=== PATIENT | female | born 1955 | race Caucasian/White ===

== ENCOUNTER → 2017-05-05 | Outpatient (CLI) | payer MEDICAID ==
[2017-05-05 15:28] LABS: CH 31.8; CHCM 33.5; HDW 2.45; HGB 13.3 gm/dL (11.4-16.0); MCH 31.7 pg (25.0-35.0); MCHC 33.3 g/dL (31.0-37.0); MCV 95.1 fL (80.0-100.0); Mean Platelet Volume 6.9; RBC 4.21 m/uL (3.80-5.40); RDW 12.8 % (11.5-15.5); WBC 6.2 k/uL (3.8-10.6)
[2017-05-05 15:39] LABS: ALT 35 U/L (9-52); AST 24 U/L (14-36); Alkaline Phosphatase 96 U/L (38-126); Anion Gap 5 mmol/L; Blood Urea Nitrogen 11 mg/dL (7-17); Calcium 9.1 mg/dL (8.4-10.2); Carbon Dioxide 30 mmol/L (22-30); Chloride 106 mmol/L (98-107); Glucose 117 mg/dL (74-99); Non-African American GFR(MDRD) >60 (>60 ml/min/1.73 sqM); Potassium 4.6 mmol/L (3.5-5.1); Sodium 141 mmol/L (137-145); Total Protein 6.7 g/dL (6.3-8.2)
== END | disposition home or self-care (01) ==
LOC: LABWHC1 14:46
PROVIDERS: ATTEND Physician Assistant
DX: I10 Essential (primary) hypertension (principal); M54.5 Low back pain; K21.9 Gastro-esophageal reflux disease without esophagitis; R63.5 Abnormal weight gain
CPT/HCPCS: 36415; 80053; 85027; 86677

== ENCOUNTER 2018-03-25 23:12 | Observation (INO) | payer MEDICAID ==
[2018-03-25] MEDS ORDERED: ONDANSETRON 4 MG/2 ML VIAL IVP STA (23:42)
[2018-03-25] MEDS ORDERED: MORPHINE SULFATE 2 MG/ML SYRINGE IV STA (23:42)
[2018-03-25] MEDS ORDERED: SODIUM CHLORIDE 0.9% 1,000 ML IV STA (23:42)
[2018-03-25 23:51] LABS: Basophils # (A) 0.1 k/uL (0-0.2); Basophils % (A) 0 %; Eosinophils # (A) 0.1 k/uL (0-0.7); Eosinophils % (A) 1 %; HCT 42.7 % (34.0-46.0); HGB 14.4 gm/dL (11.4-16.0); Lymphocytes # (A) 2.1 k/uL (1.0-4.8); Lymphocytes % (A) 15 %; MCH 31.6 pg (25.0-35.0); MCHC 33.7 g/dL (31.0-37.0); MCV 93.8 fL (80.0-100.0); Mean Platelet Volume 6.4; Monocytes # (A) 0.6 k/uL (0-1.0); Monocytes % (A) 4 %; Neutrophils % (A) 79 %; Platelet Count 333 k/uL (150-450); RBC 4.56 m/uL (3.80-5.40); RDW 12.8 % (11.5-15.5)
[2018-03-26 00:05] LABS: ALT 27 U/L (9-52); AST 25 U/L (14-36); Albumin 4.2 g/dL (3.5-5.0); Alkaline Phosphatase 100 U/L (38-126); Anion Gap 13 mmol/L; Blood Urea Nitrogen 12 mg/dL (7-17); Calcium 9.5 mg/dL (8.4-10.2); Carbon Dioxide 27 mmol/L (22-30); Chloride 101 mmol/L (98-107); Glucose 112 mg/dL (74-99); Magnesium 1.9 mg/dL (1.6-2.3); Potassium 4.2 mmol/L (3.5-5.1); Sodium 141 mmol/L (137-145); Total Bilirubin 1.1 mg/dL (0.2-1.3); Total Protein 7.3 g/dL (6.3-8.2)
[2018-03-26 00:07] LABS: Partial Thromboplastin Time 22.9 sec (22.0-30.0); Prothrombin Time 9.5 sec (9.0-12.0)
[2018-03-26 00:11] LABS: Creatine Kinase 85 U/L (30-135)
[2018-03-26 00:17] LABS: D-Dimer 1.4 mg/L FEU (<0.60)
[2018-03-26 00:24] LABS: Creatine Kinase MB 0.8 ng/mL (0.0-2.4); Troponin I <0.012 ng/mL (0.000-0.034)
--- NOTE | 2018-03-26 00:47 | XR ---
EXAMINATION TYPE: XR chest 2V DATE OF EXAM: 03/26/2018 COMPARISON: NONE HISTORY: Chest pain TECHNIQUE: Frontal and lateral views of the chest are obtained. FINDINGS: Heart and mediastinum are normal. Lungs are clear. Diaphragm is normal. Bony thorax is int act. IMPRESSION: Normal chest.
--- NOTE | 2018-03-26 01:39 | CT ---
EXAMINATION TYPE: CT angio chest DATE OF EXAM: 03/26/2018 1:08 AM COMPARISON: NONE HISTORY: No prior, chest pain today, history of hypertension, elevated d-dimer R/O PE CT DLP: 600.40 mGycm Automated exposure control for dose reduction was used. CONTRAST: CTA scan of the thorax is performed with IV Contrast, patient injected with 70 mL of Isovue 370, pulm onary embolism protocol. There are 3-D post processed images.. FINDINGS: There are 3-D post processed images. There is mild subsegmental atelectasis at the lung bases. There is no evidence of a pulmonary mass. There is no pericardial effusion. Heart is slightly enlarged. The re is no evidence of aortic aneurysm or dissection. There is no mediastinal adenopathy. I see no fill ing defects in the pulmonary arteries. The bony thorax is intact. IMPRESSION: NO EVIDENCE OF PULMONARY EMBOLISM. CARDIOMEGALY. MILD SUBSEGMENTAL ATELECTASIS AT THE LUNG BASES. GALLBLADDER IS LARGE AND MEASURES 4.3 CM IN DIAMETER. THIS PROBABLY RELATES TO GALLBLADDER DYSFUNCTIO N.
[2018-03-26] MEDS ORDERED: ENALAPRILAT 1.25 MG/ML 1 ML VIAL IVP STA (02:47)
--- NOTE | 2018-03-26 02:47 | ED ---
Chest Pain HPI - General Chief Complaint: Chest Pain Stated Complaint: chest pain Time Seen by Provider: 03/25/18 23:26 Source: patient Mode of arrival: EMS Limitations: no limitations - History of Present Illness Initial Comments: 63 years old female presents with the chest pain and epigastric area since 6 AM today stating chest pain gets worse with a deep breaths she denies any cough no fever no chills she is not coughing up any phlegm she has a history of gastroesophageal reflux disease also has a history of smoking AND she still has her gallbladder. Denies any history of any myocardial infarction or any cardiac intervention denies any pulmonary embolism or DVT in the past, devious system is unremarkable - Related Data Home Medications Medication Instructions Recorded Confirmed Omeprazole [PriLOSEC] 20 mg PO BID 04/13/14 03/25/18 Atenolol [Tenormin] 25 mg PO DAILY 08/14/14 03/25/18 Cholecalciferol [Vitamin D3] 1,000 unit PO DAILY 03/25/18 03/25/18 Ibuprofen [Motrin Ib] 200 - 400 mg PO Q6H PRN 03/25/18 03/25/18 Allergies Allergy/AdvReac Type Severity Reaction Status Date / Time No Known Allergies Allergy Verified 03/25/18 23:37 Review of Systems ROS Statement: Those systems with pertinent positive or pertinent negative responses have been documented in the HPI. ROS Other: All systems not noted in ROS Statement are negative. EKG Findings - EKG Comments: EKG Findings:: I'm EKG is a normal sinus rhythm ventricular rate is 71 CA interval is 126 QRS duration is 78 QT/QTc is 394/428 review of this EKG does not reveal any ST elevation or ST depression Past Medical History Past Medical History: GERD/Reflux, Hypertension Additional Past Medical History / Comment(s): migraines, kidney stones,AORTIC REGURGITATION, h-pylori History of Any Multi-Drug Resistant Organisms: None Reported Past Surgical History: Appendectomy, Hysterectomy Additional Past Surgical History / Comment(s): KIDNEY STONES REMOVED Past Anesthesia/Blood Transfusion Reactions: No Reported Reaction Past Psychological History: No Psychological Hx Reported Smoking Status: Never smoker Past Alcohol Use History: None Reported Past Drug Use History: None Reported General Exam - General Exam Comments Initial Comments: General: The patient is awake and alert, in no distress, and does not appear acutely ill. Skin: Skin is warm and dry and no rashes or lesions are noted. Eye: Pupils are equal, round and reactive to light, extra-ocular movements are intact; there is normal conjunctiva bilaterally. Ears, nose, mouth and throat: There are moist mucous membranes and no oral lesions. Neck: The neck is supple, there is no tenderness or JVD. Cardiovascular: There is a regular rate and rhythm. No murmur, rub or gallop is appreciated. Respiratory: To auscultation bilateral, no wheezing no rhonchi no distress respiratory wu noticed Gastrointestinal: Soft, non-distended, non-tender abdomen without masses or organomegaly noted. There is no rebound or guarding present. Bowel sounds are unremarkable. The tender in epigastric area Back: There is no tenderness to palpation in the midline. There is no obvious deformity. Musculoskeletal: Normal ROM, no tenderness, There is no pedal edema. There is no calf tenderness or swelling. No cords were appreciated. Neurological: CN II-XII intact, Cranial nerves III through XII are intact. There are no obvious motor or sensory deficits. Coordination appears grossly intact. Speech is normal. Psychiatric: Cooperative, appropriate mood & affect, normal judgment. Limitations: no limitations Course Vital Signs 03/25/18 03/26/18 03/26/18 23:14 01:11 02:45 Temperature 98.9 F Pulse Rate 88 72 60 Respiratory 18 18 18 Rate Blood Pressure 172/78 176/75 180/79 O2 Sat by Pulse 98 99 99 Oximetry Critical Care Time Total Critical Care Time: 30 Critical Care Time: She came in with the epigastric pain chest pain radiates towards the back was concerned about 30 dissection considering her blood pressure was quite high d- dimer was elevated CT and J chest was unremarkable for pulmonary embolism blood pressure stayed above 180 for a few times she was given some Vasotec IV Disposition Clinical Impression: Hypertension, Chest pain, GERD (gastroesophageal reflux disease) Disposition: ADMITTED IP TO THIS HOSP Condition: Good Referrals: Olivia Mcduffie MD [Primary Care Provider] - 1-2 days
[2018-03-26] MEDS ORDERED: NITROGLYCERIN SL TABS 0.4 MG TAB SUBLINGUAL PRN (02:59)
[2018-03-26] MEDS ORDERED: MORPHINE SULFATE 2 MG/ML SYRINGE IV PRN (02:59)
[2018-03-26] MEDS ORDERED: amLODIPine 5 MG TAB PO STA (04:13)
[2018-03-26] MEDS ORDERED: hydrALAZINE HCL 20 MG/ML 1 ML VIAL IVP STA (04:14)
[2018-03-26 06:52] LABS: Creatine Kinase 79 U/L (30-135)
[2018-03-26 07:02] LABS: Creatine Kinase MB 0.8 ng/mL (0.0-2.4); Troponin I <0.012 ng/mL (0.000-0.034)
[2018-03-26] MEDS ORDERED: PANTOPRAZOLE 40 MG TABLET PO SCH (09:00)
[2018-03-26] MEDS: ATENOLOL 25 MG TAB PO SCH (10:49)
[2018-03-26] MEDS: CHOLECALCIFEROL 1,000 UNIT TAB PO SCH (10:49)
[2018-03-26] MEDS ORDERED: MAG HYDROX/AL HYDROX/SIMETH 30 ML CUP PO PRN (11:56)
--- NOTE | 2018-03-26 12:27 | ECHOF ---
Referral Reason: MEASUREMENTS -------- HEIGHT: 162.6 cm WEIGHT: 90.7 kg BP: 148/66 IVSd: 1.1 cm (0.6 - 1.1) LVIDd: 4.3 cm (3.9 - 5.3) LVPWd: 1.1 cm (0.6 - 1.1) IVSs: 1.3 cm LVIDs: 3.3 cm LVPWs: 1.2 cm LAESV Index (A-L): 23.97 ml/m Ao Diam: 3.1 cm (2.0 - 3.7) AV Cusp: 1.8 cm (1.5 - 2.6) LA Diam: 4.3 cm (2.7 - 3.8) MV EXCURSION: 22.560 mm (> 18.000) MV EF SLOPE: 120 mm/s (70 - 150) EPSS: 0.9 cm MV E Heron: 0.74 m/s MV DecT: 181 ms MV A Heron: 1.05 m/s MV E/A Ratio: 0.71 RAP: 5.00 mmHg RVSP: 30.70 mmHg FINDINGS -------- Sinus rhythm. This was a technically adequate study. LV size, wall thickness and systolic function are normal, with an EF greater than 55%. The left adam tricular size is normal. The right ventricle is normal in size. The left atrial size is normal. Normal LA size by volume 22+/-6 ml/m2. The right atrial size is normal. The aortic valve is trileaflet, and appears structurally normal. No aortic stenosis or regurgitation. Mild mitral annular calcification present. Mild mitral regurgitation is present. Mild tricuspid regurgitation present. There is no evidence of pulmonary hypertension. The right v entricular systolic pressure, as measured by Doppler, is 30.70mmHg. The pulmonic valve was not well visualized. The aortic root size is normal. There is no pericardial effusion. CONCLUSIONS -------- 1. LV size, wall thickness and systolic function are normal, with an EF greater than 55%. 2. The left ventricular size is normal. 3. The right ventricle is normal in size. 4. The left atrial size is normal. 5. The right atrial size is normal. 6. The aortic valve is trileaflet, and appears structurally normal. No aortic stenosis or regurgitati on. 7. Mild mitral annular calcification present. 8. Mild mitral regurgitation is present. 9. Mild tricuspid regurgitation present. 10. There is no evidence of pulmonary hypertension. 11. The right ventricular systolic pressure, as measured by Doppler, is 30.70mmHg. 12. The pulmonic valve was not well visualized. 13. The aortic root size is normal. 14. There is no pericardial effusion. SHOE STAMPER: Oksana [place] RDCS
--- NOTE | 2018-03-26 12:37 | P.CRDCN ---
History of Present Illness History of present illness: Mrs. Espinal is a pleasant 63-year-old female past medical history significant for hypertension, GERD and aortic regurgitation. She denies history of coronary artery disease and is a non-smoker. We have been asked to see her in consultation for chest pain. She states she woke up yesterday with a sharp heavy pain in the mid-sternal/epigastric region that radiated through to her back with associated nausea. The pain was persistent all day yesterday with no specific aggravating or alleviating factors. She denies associated shortness of breath, dizziness, palpitations, diaphoresis or vomiting. CTA was obtained which revealed evidence of pulmonary embolism, cardiomegaly, mild subsegmental atelectasis at the bilateral lung bases and an enlarged gallbladder with probably relating to elevated dysfunction. EKG reveals sinus mechanism with no acute ST or T-wave abnormalities. Chest xray negative for an acute cardiopulmonary process. Laboratory data reviewed, WBC 14.0, hgb 14.4, plt 333, d-dimer 1.4, sodium 141, potassium 4.2, magnesium 1.9, cardiac enzymes negative x2. Current cardiac medications include atenolol 25 mg daily. She also takes Prilosec, Motrin and vitamin D supplementation. Review of Systems At the time of my exam: CONSTITUTIONAL: Denies fever. Denies chills. EYES: Denies blurred vision. Denies vision changes. Denies eye pain. EARS, NOSE, MOUTH & THROAT: Denies headache. Denies sore throat. Denies ear pain. CARDIOVASCULAR: Complains of midsternal chest pain. Denies shortness of breath. Denies orthopnea. Denies PND. Denies palpitations. RESPIRATORY: Denies cough. GASTROINTESTINAL: Denies abdominal pain. Denies diarrhea. Denies constipation. Denies nausea. Denies vomiting. MUSCULOSKELETAL: Denies myalgias. INTEGUMENTARY: Denies pruitis. Denies rash. NEUROLOGIC: Denies numbness. Denies tingling. Denies weakness. PSYCHIATRIC: Denies anxiety. Denies depression. ENDOCRINE: Denies fatigue. Denies weight change. Denies polydipsia. Denies polyurina. GENITOURINARY: Denies burning, hematuria or urgency with micturation. HEMATOLOGIC: Denies history of anemia. Denies bleeding. Past Medical History Past Medical History: GERD/Reflux, Hypertension Additional Past Medical History / Comment(s): Aortic valve regurg, H pylori more than once, migraines, kidney stones surgically removed, hiatal henia, diverticulosis. History of Any Multi-Drug Resistant Organisms: None Reported Past Surgical History: Appendectomy, Hysterectomy Additional Past Surgical History / Comment(s): KIDNEY STONES REMOVED, 2013 EGD/ COLONOSCOPY Past Anesthesia/Blood Transfusion Reactions: No Reported Reaction Smoking Status: Never smoker - Past Family History Father Family Medical History: CVA/TIA Additional Family Medical History / Comment(s): Father of a CVA at the age of 70yrs. Mother Family Medical History: Coronary Artery Disease (CAD), Renal Disease Additional Family Medical History / Comment(s): Mother of complications after CABG. Medications and Allergies Home Medications Medication Instructions Recorded Confirmed Type Omeprazole [PriLOSEC] 20 mg PO BID 04/13/14 03/25/18 History Atenolol [Tenormin] 25 mg PO DAILY 08/14/14 03/25/18 History Cholecalciferol [Vitamin D3] 1,000 unit PO DAILY 03/25/18 03/25/18 History Ibuprofen [Motrin Ib] 200 - 400 mg PO Q6H PRN 03/25/18 03/25/18 History Allergies Allergy/AdvReac Type Severity Reaction Status Date / Time No Known Allergies Allergy Verified 03/25/18 23:37 Physical Exam Vitals: Vital Signs Temp Pulse Resp BP Pulse Ox 03/26/18 10:00 100 16 148/70 97 03/26/18 07:42 97 03/26/18 06:42 97.8 F 84 18 140/84 97 03/26/18 05:39 74 18 106/52 97 03/26/18 04:43 89 18 165/73 98 03/26/18 04:14 63 18 182/75 98 03/26/18 03:33 65 18 179/74 62 L 03/26/18 02:45 60 18 180/79 99 03/26/18 01:11 72 18 176/75 99 03/25/18 23:14 98.9 F 88 18 172/78 98 Intake and Output 03/25/18 03/26/18 03/26/18 22:59 06:59 14:59 Other: Weight 90.718 kg Blood pressure 148/70 heart rate 100 afebrile maintaining oxygen saturation on nasal cannula 2 L GENERAL: This is a 63-year-old occasion female in no apparent distress at the time of my examination. HEENT: Head is atraumatic, normocephalic. Pupils are equal, round. Sclerae anicteric. Conjunctivae are clear. Mucous membranes of the mouth are moist. Neck is supple. There is no jugular venous distention. No carotid bruit is heard. LUNGS: Clear to auscultation no wheezes, rales or rhonchi. No chest wall tenderness is noted on palpation or with deep breathing. HEART: Regular rate and rhythm with systolic murmur, no rubs or gallops. S1 and S2 heard. ABDOMEN: Soft, nontender. Bowel sounds are heard. No organomegaly noted. EXTREMITIES: No evidence of peripheral edema and no calf tenderness noted. VASCULAR: Radial and dorsalis pedis pulses palpated, no evidence of clubbing. NEUROLOGIC: Patient is awake, alert and oriented x3. Results 03/25/18 23:29 03/25/18 23:29 Cardiac Enzymes 03/25/18 03/25/18 03/26/18 Range/Units 23:29 23:29 06:19 AST 25 (14-36) U/L CK-MB (CK-2) 0.8 0.8 (0.0-2.4) ng/mL Troponin I <0.012 <0.012 (0.000-0.034) ng/mL Coagulation 03/25/18 Range/Units 23:29 PT 9.5 (9.0-12.0) sec APTT 22.9 (22.0-30.0) sec CBC 03/25/18 Range/Units 23:29 WBC 14.0 H (3.8-10.6) k/uL RBC 4.56 (3.80-5.40) m/uL Hgb 14.4 (11.4-16.0) gm/dL Hct 42.7 (34.0-46.0) % Plt Count 333 (150-450) k/uL Comprehensive Metabolic Panel 03/25/18 Range/Units 23:29 Sodium 141 (137-145) mmol/L Potassium 4.2 (3.5-5.1) mmol/L Chloride 101 (98-107) mmol/L Carbon Dioxide 27 (22-30) mmol/L BUN 12 (7-17) mg/dL Creatinine 0.60 (0.52-1.04) mg/dL Glucose 112 H (74-99) mg/dL Calcium 9.5 (8.4-10.2) mg/dL AST 25 (14-36) U/L ALT 27 (9-52) U/L Alkaline Phosphatase 100 (38-126) U/L Total Protein 7.3 (6.3-8.2) g/dL Albumin 4.2 (3.5-5.0) g/dL Current Medications Generic Name Dose Route Start Last Admin Trade Name Freq PRN Reason Stop Dose Admin Aspirin 325 mg 03/27/18 09:00 03/26/18 10:53 Aspirin PO 325 mg DAILY SARAI Administration Atenolol 25 mg 03/26/18 09:00 03/26/18 10:49 Tenormin PO 25 mg DAILY SARAI Administration Cholecalciferol 1,000 unit 03/26/18 09:00 03/26/18 10:49 Vitamin D3 PO 1,000 unit DAILY SARAI Administration Morphine Sulfate 4 mg 03/26/18 02:59 03/26/18 06:46 Morphine Sulfate (Inj) IV 4 mg Q5M PRN Administration Chest Pain Nitroglycerin 0.4 mg 03/26/18 02:59 Nitrostat SUBLINGUAL Q5M PRN Chest Pain Pantoprazole Sodium 40 mg 03/26/18 09:00 03/26/18 10:49 Protonix PO 40 mg BID SARAI Administration Intake and Output 03/25/18 03/26/18 03/26/18 22:59 06:59 14:59 Other: Weight 90.718 kg 03/25/18 23:29 03/25/18 23:29 Assessment and Plan Assessment: ASSESSMENT 1. Chest pain, atypical. An acute coronary event has been ruled out with no EKG evidence of ischemia and normal cardiac enzymes. 2. Hypertension 3. Gastroesophageal reflux disease PLAN Obtain 2D echocardiogram and doppler study to assess cardiac structure and function. Give maalox 30 mg x1 now. Check ultrasound of gallbladder. Further recommendations to follow based on clinical course. Thank you kindly for this consultation. Nurse Practitioner note has been reviewed, I agree with a documented findings and plan of care. Patient was seen and examined.
[2018-03-26 12:41] LABS: Creatine Kinase 59 U/L (30-135)
[2018-03-26 12:55] LABS: Creatine Kinase MB 0.8 ng/mL (0.0-2.4); Troponin I <0.012 ng/mL (0.000-0.034)
[2018-03-26] MEDS ORDERED: ONDANSETRON 4 MG/2 ML VIAL IVP STA (12:58)
--- NOTE | 2018-03-26 14:17 | US ---
EXAMINATION TYPE: US gallbladder DATE OF EXAM: 03/26/2018 COMPARISON: 03/26/2018 CT angio chest. CLINICAL HISTORY: pain. epigastric and back pain EXAM MEASUREMENTS: Liver Length: 14.5 cm Gallbladder Wall: 0.3cm CBD: 0.7 cm Right Kidney: 10.0 x 5.4 x 6.9 cm bowel gas limits exam Pancreas: wnl Liver: difficult to penetrate, intercostal imaging. Findings most commonly related to underlying hep atic steatosis and limiting evaluation for hepatic masses. Gallbladder: multiple stones seen near neck, a few appeared mobile but cannot r/o stone dependant in neck, sludge Evidence for sonographic Prather's sign: no CBD: Mildly enlarged Right Kidney: wnl IMPRESSION: Multiple shadowing gallstones at the gallbladder neck, biliary sludge, and mild enlargeme nt of the common bile duct. No convincing evidence of acute cholecystitis however biliary dysfunction is again suspected. HIDA scan with CCK could be performed to evaluate for biliary dyskinesia and/or chronic cholecystitis.
[2018-03-26] MEDS ORDERED: ACETAMINOPHEN IV (For NPO) 1,000 MG in EMPTY BAG 1 BAG IVPB STA (14:32)
--- NOTE | 2018-03-26 14:44 | P.GSCN ---
<Rea Allison - Last Filed: 03/26/18 14:45> History of Present Illness Consult date: 03/26/18 Reason for Consult: Abdominal pain with an abnormal computed tomography scan gallbladder enlarged History of present illness: 63-year-old female being seen at the request of the attending for a surgical eval after CAT scan of the chest showed an enlarged gallbladder suspect gallstones. Patient's initial presentation to the emergency room with a chief complaint of developing mid epigastric pain that radiated to the right upper quadrant With a nausea sensation stated it started yesterday she woke up from a sleep with severe mid epigastric pain became more symptomatic stated that it seemed to be worse if she tried taking a deep breath. Given the above clinical presentation d-dimer was obtained noted to be elevated and a CAT scan of the chest to rule out pulmonary emboli was obtained in the emergency room. There was no evidence of a pulmonary emboli it did show enlarged gallbladder. Patient additionally was seen by cardiology service for chest pain. Cardiac enzymes 3 sets were negative. no evidence of an acute coronary event. EKG showed no evidence of ischemia. Patient denied having episodes of chest pain. 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 Patient did have an echocardiogram done this admission did show an EF greater than 55% no evidence of pulmonary hypertension. Patient reports that she been experiencing on and off for the past several years intermittent episodes of developing mid epigastric pain would resolve on its own.. she did have a workup done several years ago for intermittent episodes of right upper quadrant abdominal pain. Reviewing the computerized record report had an EGD and a colonoscopy done in 2013 EGD showed small sliding hiatal hernia, mild atrophic gastritis, colonoscopy sigmoid diverticulosis Patient has a past medical history for hypertension, esophageal reflex. Additionally patient's past surgical history total abdominal hysterectomy, kidney stone removed, EGD and a colonoscopy. Patient continues to experience midepigastric pain with tenderness to the right upper quadrant. Did note the temp and the emergency room was 102.8 with a white count of 14. Review of Systems Essentially unremarkable except as mentioned in present illness Past Medical History Past Medical History: GERD/Reflux, Hypertension Additional Past Medical History / Comment(s): Aortic valve regurg, H pylori more than once, migraines, kidney stones surgically removed, hiatal henia, diverticulosis. History of Any Multi-Drug Resistant Organisms: None Reported Past Surgical History: Appendectomy, Hysterectomy Additional Past Surgical History / Comment(s): KIDNEY STONES REMOVED, 2013 EGD/ COLONOSCOPY Past Anesthesia/Blood Transfusion Reactions: No Reported Reaction Smoking Status: Never smoker - Past Family History Father Family Medical History: CVA/TIA Additional Family Medical History / Comment(s): Father of a CVA at the age of 70yrs. Mother Family Medical History: Coronary Artery Disease (CAD), Renal Disease Additional Family Medical History / Comment(s): Mother of complications after CABG. Medications and Allergies Home Medications Medication Instructions Recorded Confirmed Type Omeprazole [PriLOSEC] 20 mg PO BID 04/13/14 03/25/18 History Atenolol [Tenormin] 25 mg PO DAILY 08/14/14 03/25/18 History Cholecalciferol [Vitamin D3] 1,000 unit PO DAILY 03/25/18 03/25/18 History Ibuprofen [Motrin Ib] 200 - 400 mg PO Q6H PRN 03/25/18 03/25/18 History Allergies Allergy/AdvReac Type Severity Reaction Status Date / Time No Known Allergies Allergy Verified 03/25/18 23:37 Surgical - Exam Vital Signs Temp Pulse Resp BP Pulse Ox 98.9 F 88 18 172/78 98 03/25/18 23:14 03/25/18 23:14 03/25/18 23:14 03/25/18 23:14 03/25/18 23:14 GENERAL APPEARANCE: Very pleasant 63-year-old female patient is alert, reports persistent right upper quadrant abdominal pain with a headache VITAL SIGNS: Reviewed HEENT: Head is normocephalic and atraumatic. Pupils are equal and reactive. The nares are patent. Oropharynx is clear without lesions. NECK: Supple without lymphadenopathy. Traches midline. HEART: S1, S2. Regular rate and rhythm. No murmur noted denying chest pain heart rate in the 80s LUNGS: No crackles or wheezes are heard. Adequate air movement bilaterally on room air no shortness of breath noted ABDOMEN: Soft, mild tenderness midepigastric radiating right upper quadrant nondistended with good bowel sounds. No peritoneal signs. No palpable organomegaly or masses. EXTREMITIES: Normal skin color and turgor. No cyanosis, rash, ulceration, clubbing or edema. Radial pedal pulses are 2/4 bilaterally. NEUROLOGICAL: No focal deficits. Strength and sensation are grossly intact. Results - Labs 03/25/18 23:29 03/25/18 23:29 Abnormal Lab Results - Last 24 Hours (Table) 03/25/18 03/25/18 03/25/18 Range/Units 23:29 23:29 23:29 WBC 14.0 H (3.8-10.6) k/uL Neutrophils # 11.0 H (1.3-7.7) k/uL D-Dimer 1.40 H (<0.60) mg/L FEU Glucose 112 H (74-99) mg/dL Diabetes panel 03/25/18 Range/Units 23:29 Sodium 141 (137-145) mmol/L Potassium 4.2 (3.5-5.1) mmol/L Chloride 101 (98-107) mmol/L Carbon Dioxide 27 (22-30) mmol/L BUN 12 (7-17) mg/dL Creatinine 0.60 (0.52-1.04) mg/dL Glucose 112 H (74-99) mg/dL Calcium 9.5 (8.4-10.2) mg/dL AST 25 (14-36) U/L ALT 27 (9-52) U/L Alkaline Phosphatase 100 (38-126) U/L Total Protein 7.3 (6.3-8.2) g/dL Albumin 4.2 (3.5-5.0) g/dL Calcium panel 03/25/18 Range/Units 23:29 Calcium 9.5 (8.4-10.2) mg/dL Albumin 4.2 (3.5-5.0) g/dL Pituitary panel 03/25/18 Range/Units 23:29 Sodium 141 (137-145) mmol/L Potassium 4.2 (3.5-5.1) mmol/L Chloride 101 (98-107) mmol/L Carbon Dioxide 27 (22-30) mmol/L BUN 12 (7-17) mg/dL Creatinine 0.60 (0.52-1.04) mg/dL Glucose 112 H (74-99) mg/dL Calcium 9.5 (8.4-10.2) mg/dL Adrenal panel 03/25/18 Range/Units 23:29 Sodium 141 (137-145) mmol/L Potassium 4.2 (3.5-5.1) mmol/L Chloride 101 (98-107) mmol/L Carbon Dioxide 27 (22-30) mmol/L BUN 12 (7-17) mg/dL Creatinine 0.60 (0.52-1.04) mg/dL Glucose 112 H (74-99) mg/dL Calcium 9.5 (8.4-10.2) mg/dL Total Bilirubin 1.1 (0.2-1.3) mg/dL AST 25 (14-36) U/L ALT 27 (9-52) U/L Alkaline Phosphatase 100 (38-126) U/L Total Protein 7.3 (6.3-8.2) g/dL Albumin 4.2 (3.5-5.0) g/dL Assessment and Plan Assessment: Impression Present on admission midepigastric pain radiating to right upper quadrant suspect due to acute on chronic cholecystitis with cholelithiasis Present on admission leukocytosis febrile suspect due to acute cholecystitis Obesity BMI 34 Ultrasound did show evidence of multiple gallstones at the gallbladder neck, biliary sludge mildly enlarged common bile duct Computed tomography scan of the chest showed gallbladder enlarged measures 4.3 cm Present on admission atypical chest pain with no evidence of an acute coronary syndrome Echocardiogram EF 55% no valvular heart disease Positive family history of gallbladder disease mother and sister Hypertension essential Esophageal reflux disease Elevated d-dimer computed tomography scan of the chest no evidence of a pulmonary emboli Plan Start IV Zosyn as ordered Nothing by mouth for planned laparoscopic cholecystectomy today IV fluid for hydration DVT and GI prophylaxis Further recommendations pending clinical course Surgical consultation note dictated for Dr. bernal The above impression and plan of care have been discussed and directed by signing physician. Rea Allison nurse practitioner acting as scribe for signing physician. <Aniceto Bernal - Last Filed: 03/26/18 15:51> Surgical - Exam Vital Signs Temp Pulse Resp BP Pulse Ox 98.9 F 88 18 172/78 98 03/25/18 23:14 03/25/18 23:14 03/25/18 23:14 03/25/18 23:14 03/25/18 23:14 Results - Labs 03/25/18 23:29 03/25/18 23:29 Abnormal Lab Results - Last 24 Hours (Table) 03/25/18 03/25/18 03/25/18 Range/Units 23:29 23:29 23:29 WBC 14.0 H (3.8-10.6) k/uL Neutrophils # 11.0 H (1.3-7.7) k/uL D-Dimer 1.40 H (<0.60) mg/L FEU Glucose 112 H (74-99) mg/dL Diabetes panel 03/25/18 Range/Units 23:29 Sodium 141 (137-145) mmol/L Potassium 4.2 (3.5-5.1) mmol/L Chloride 101 (98-107) mmol/L Carbon Dioxide 27 (22-30) mmol/L BUN 12 (7-17) mg/dL Creatinine 0.60 (0.52-1.04) mg/dL Glucose 112 H (74-99) mg/dL Calcium 9.5 (8.4-10.2) mg/dL AST 25 (14-36) U/L ALT 27 (9-52) U/L Alkaline Phosphatase 100 (38-126) U/L Total Protein 7.3 (6.3-8.2) g/dL Albumin 4.2 (3.5-5.0) g/dL Calcium panel 03/25/18 Range/Units 23:29 Calcium 9.5 (8.4-10.2) mg/dL Albumin 4.2 (3.5-5.0) g/dL Pituitary panel 03/25/18 Range/Units 23:29 Sodium 141 (137-145) mmol/L Potassium 4.2 (3.5-5.1) mmol/L Chloride 101 (98-107) mmol/L Carbon Dioxide 27 (22-30) mmol/L BUN 12 (7-17) mg/dL Creatinine 0.60 (0.52-1.04) mg/dL Glucose 112 H (74-99) mg/dL Calcium 9.5 (8.4-10.2) mg/dL Adrenal panel 03/25/18 Range/Units 23:29 Sodium 141 (137-145) mmol/L Potassium 4.2 (3.5-5.1) mmol/L Chloride 101 (98-107) mmol/L Carbon Dioxide 27 (22-30) mmol/L BUN 12 (7-17) mg/dL Creatinine 0.60 (0.52-1.04) mg/dL Glucose 112 H (74-99) mg/dL Calcium 9.5 (8.4-10.2) mg/dL Total Bilirubin 1.1 (0.2-1.3) mg/dL AST 25 (14-36) U/L ALT 27 (9-52) U/L Alkaline Phosphatase 100 (38-126) U/L Total Protein 7.3 (6.3-8.2) g/dL Albumin 4.2 (3.5-5.0) g/dL Assessment and Plan Assessment: As above. Patient with epigastric pain and tenderness along with fevers. CAT scan chest shows a distended gallbladder with a slightly thickened wall. Most likely etiology for the patient's symptoms presently is acute cholecystitis. Agree with starting IV antibiotics. Options discussed with the patient and her family in detail. We'll proceed with laparoscopic, possible open cholecystectomy at this time. Risks of bleeding, infection, bile leak, bile duct injury, retained common bile duct stone, trocar injury, conversion to an open procedure, potential findings of other etiologies for her pain requiring additional procedures, hernia, anesthesia related complications were reviewed. The patient understands and wishes to proceed.
[2018-03-26] MEDS ORDERED: IV FLUID CONTINUATION 1,000 ML IV ONE (15:19)
[2018-03-26] MEDS ORDERED: ONDANSETRON 4 MG/2 ML VIAL IVP ONE (15:28)
[2018-03-26] MEDS ORDERED: DEXAMETHASONE SOD PHOS (MDV) 100 MG/10 ML VIAL IV ONE (15:29)
[2018-03-26] MEDS ORDERED: HEPARIN SODIUM,PORCINE 5,000 UNIT/ML 1 ML VIAL SQ ONE (15:55)
[2018-03-26] MEDS ORDERED: PHENYLEPHRINE-0.9% NACL SYG 1 MG/10 ML SYRINGE ONE (16:00)
[2018-03-26] MEDS ORDERED: NEOSTIGMINE 1 MG/ML 10 ML VIAL ONE (16:00)
[2018-03-26] MEDS ORDERED: SUCCINYLCHOLINE CHLORIDE 100 MG/5 ML SYR IV ONE (16:00)
[2018-03-26] MEDS ORDERED: MIDAZOLAM 2 MG/2 ML VIAL ONE (16:00)
[2018-03-26] MEDS ORDERED: PROPOFOL 10 MG/ML 20 ML VIAL IV ONE (16:00)
[2018-03-26] MEDS ORDERED: fentaNYL (PF) 50 MCG/ML 2 ML AMP ONE (16:00)
[2018-03-26] MEDS ORDERED: LIDOCAINE 1% INJ 10MG/ML (20 ML MDV) ONE (16:00)
[2018-03-26] MEDS ORDERED: ROCURONIUM BROMIDE 10 MG/ML 10 ML VIAL IV ONE (16:00)
[2018-03-26] MEDS ORDERED: GLYCOPYRROLATE 0.2 MG/ML 2 ML VIAL ONE (16:00)
[2018-03-26] MEDS ORDERED: BUPIVACAINE (PF) 0.5% 30 ML VIAL SQ ONE (16:24)
--- NOTE | 2018-03-26 16:54 | P.PN ---
Subjective addendum i came to see pt twice and she was in operation room ,we will try to see her later Objective - Vital Signs Vital signs: Vital Signs Temp 100.2 F H 03/26/18 15:20 Pulse 87 03/26/18 15:20 Resp 18 03/26/18 15:20 BP 110/53 03/26/18 15:20 Pulse Ox 94 L 03/26/18 15:20 Intake & Output 03/25/18 03/26/18 03/26/18 18:59 06:59 18:59 Intake Total 50 Balance 50 Weight 90.718 kg 96.8 kg Intake: IV 50 - Labs CBC & Chem 7: 03/25/18 23:29 03/25/18 23:29 Labs: Abnormal Lab Results - Last 24 Hours (Table) 03/25/18 03/25/18 03/25/18 Range/Units 23:29 23:29 23:29 WBC 14.0 H (3.8-10.6) k/uL Neutrophils # 11.0 H (1.3-7.7) k/uL D-Dimer 1.40 H (<0.60) mg/L FEU Glucose 112 H (74-99) mg/dL
--- NOTE | 2018-03-26 17:09 | P.OP ---
Date of Procedure: 03/26/18 Procedure(s) Performed: PREOPERATIVE DIAGNOSIS: Acute cholecystitis POSTOPERATIVE DIAGNOSIS: Same PROCEDURE: Laparoscopic cholecystectomy SURGEON: John EBL: Minimal see anesthesia record ANESTHESIA: Gen. COMPLICATIONS: None OPERATIVE PROCEDURE: The patient was brought and placed on the operating room table in the supine position. The patient was placed under general anesthesia at that time. The abdomen was prepped and draped in the usual sterile fashion. A small vertical infraumbilical incision was made. The fascia was grasped with the Hai forceps. The fascia was retracted anteriorly. The Veress needle was advanced into the peritoneal cavity. The saline drop test was not normal. I decided to use the optical 5 mm trocar in the right upper quadrant at that time. Entrance into the peritoneal cavity occurred easily. The umbilical site was inspected. The patient had a large amount of adhesions to the omentum in the infraumbilical location. Under direct dilatation I was able to tunnel the 5 mm umbilical trocar without difficulty. The camera was then inserted through this trocar. Additional right upper quadrant lateral 5 mm trocar was placed. An epigastric 12 mm trocar was also placed. The gallbladder was inspected and appeared to be acutely inflamed and quite tense. A small opening was created in the fundus of the gallbladder and the bilious fluid was evacuated. The gallbladder was retracted superiorly and laterally. The peritoneum overlying the infundibulum was bluntly dissected. The patient's cystic duct was visualized. The junction between the cystic duct common and hepatic duct was identified. The cystic duct was then divided after placement of 2 12 mm clips on the patient's side and one on the specimen side. The cystic artery was identified and clipped as well. A small vessel was seen along the gallbladder fossa and clipped as well. The gallbladder was then removed from the liver bed using electrocautery. The gallbladder was then removed from the epigastric trocar site with an Endo Catch bag. The gallbladder fossa was irrigated with saline. There was no evidence of any bleeding or biliary drainage seen. The trochars were then removed. The fascia at the 12 millimeter site was closed using a Calin-Spring 0 Vicryl stitch. The skin at all 4 sites was closed using a 4-0 Monocryl stitch. At the end of this procedure the sponge and needle counts were correct. DISPOSITION: Stable to the recovery room
--- NOTE | 2018-03-26 18:08 | P.HPIM ---
History of Present Illness This is a pleasant 63 years female with past medical history of GERD, hypertension, aortic valve regurgitation, migraine, kidney stones status post surgical removal, hiatal hernia, hysterectomy who presents because of chest pain , that is central epigastric region, radiating to the back and associated with nausea but no vomiting of one day duration. No associated sweating, no dyspnea , today she noticed to have a fever of 100.2. In the emergency room her white cell count was 14 K, hemoglobin 14.4 area her BMP was unremarkable with creatinine 0.6, d-dimer is 1.4 which is elevated. Patient has CTPA which was negative for PE and showed gallbladder dysfunction. Echo shows EF with 55% gallbladder ultrasound showed gallstones in the gallbladder neck with mild enlargement of the common bile duct [see full report in the chart] Patient has been evaluated by surgical team patient who recommended surgical removal of the gallbladder. Patient underwent laparoscopic cholecystectomy. Patient has been evaluated in the PACU units, she was a little bit drowsy postsurgically, because of this she was poor respiratory and possibly formation were taken from the chart however she denies any chest pain or other symptoms for me currently Review of Systems CONSTITUTIONAL: No fever, no malaise, no fatigue. HEENT: No recent visual problems or hearing problems. Denied any sore throat. CARDIOVASCULAR: No orthopnea, PND, no palpitations, no syncope. PULMONARY: No shortness of breath, no cough, no hemoptysis. GASTROINTESTINAL: No diarrhea, no nausea, no vomiting, no abdominal pain. Normoactive bowel sounds. NEUROLOGICAL: No headaches, no weakness, no numbness. HEMATOLOGICAL: Denies any bleeding or petechiae. GENITOURINARY: Denies any burning micturition, frequency, or urgency. MUSCULOSKELETAL/RHEUMATOLOGICAL: Denies any joint pain, swelling, or any muscle pain. ENDOCRINE: Denies any polyuria or polydipsia. Past Medical History Past Medical History: GERD/Reflux, Hypertension Additional Past Medical History / Comment(s): Aortic valve regurg, H pylori more than once, migraines, kidney stones surgically removed, hiatal henia, diverticulosis. History of Any Multi-Drug Resistant Organisms: None Reported Past Surgical History: Appendectomy, Hysterectomy Additional Past Surgical History / Comment(s): KIDNEY STONES REMOVED, 2013 EGD/ COLONOSCOPY Past Anesthesia/Blood Transfusion Reactions: No Reported Reaction Smoking Status: Never smoker - Past Family History Father Family Medical History: CVA/TIA Additional Family Medical History / Comment(s): Father of a CVA at the age of 70yrs. Mother Family Medical History: Coronary Artery Disease (CAD), Renal Disease Additional Family Medical History / Comment(s): Mother of complications after CABG. Medications and Allergies Home Medications Medication Instructions Recorded Confirmed Type Omeprazole [PriLOSEC] 20 mg PO BID 04/13/14 03/25/18 History Atenolol [Tenormin] 25 mg PO DAILY 08/14/14 03/25/18 History Cholecalciferol [Vitamin D3] 1,000 unit PO DAILY 03/25/18 03/25/18 History Ibuprofen [Motrin Ib] 200 - 400 mg PO Q6H PRN 03/25/18 03/25/18 History Allergies Allergy/AdvReac Type Severity Reaction Status Date / Time No Known Allergies Allergy Verified 03/25/18 23:37 Physical Exam Vitals: Vital Signs Temp Pulse Pulse Pulse Resp BP BP 03/26/18 17:47 68 16 109/55 03/26/18 17:32 66 16 105/52 03/26/18 17:18 98.2 F 78 16 117/54 03/26/18 15:20 100.2 F H 87 18 110/53 03/26/18 14:15 99.5 F 83 18 128/61 03/26/18 13:31 102.8 F H 84 16 132/63 03/26/18 10:00 100 16 148/70 03/26/18 07:42 03/26/18 06:42 97.8 F 84 18 140/84 03/26/18 05:39 74 18 106/52 03/26/18 04:43 89 18 165/73 03/26/18 04:14 63 18 182/75 03/26/18 03:33 65 18 179/74 03/26/18 02:45 60 18 180/79 03/26/18 01:11 72 18 176/75 03/25/18 23:14 98.9 F 88 18 172/78 Pulse Ox 03/26/18 17:47 98 03/26/18 17:32 100 03/26/18 17:18 94 L 03/26/18 15:20 94 L 03/26/18 14:15 96 03/26/18 13:31 97 03/26/18 10:00 97 03/26/18 07:42 97 03/26/18 06:42 97 03/26/18 05:39 97 03/26/18 04:43 98 03/26/18 04:14 98 03/26/18 03:33 62 L 03/26/18 02:45 99 03/26/18 01:11 99 03/25/18 23:14 98 Intake and Output 03/26/18 03/26/18 03/26/18 06:59 14:59 22:59 Intake Total 750 Output Total 10 Balance 740 Intake: IV 750 Output: Estimated Blood Loss 10 Other: Weight 90.718 kg 96.8 kg GENERAL: The patient is alert and oriented x3, not in any acute distress. Well developed, well nourished. HEENT: Pupils are round and equally reacting to light. EOMI. No scleral icterus. No conjunctival pallor. Normocephalic, atraumatic. No pharyngeal erythema. No thyromegaly. CARDIOVASCULAR: S1 and S2 present. No murmurs, rubs, or gallops. PULMONARY: Chest is clear to auscultation, no wheezing or crackles. ABDOMEN: Soft, nontender, nondistended, normoactive bowel sounds. No palpable organomegaly. MUSCULOSKELETAL: No joint swelling or deformity. EXTREMITIES: No cyanosis, clubbing, or pedal edema. NEUROLOGICAL: Gross neurological examination did not reveal any focal deficits. SKIN: No rashes. Results CBC & Chem 7: 03/25/18 23:29 03/25/18 23:29 Labs: Abnormal Lab Results - Last 24 Hours (Table) 03/25/18 03/25/18 03/25/18 Range/Units 23:29 23:29 23:29 WBC 14.0 H (3.8-10.6) k/uL Neutrophils # 11.0 H (1.3-7.7) k/uL D-Dimer 1.40 H (<0.60) mg/L FEU Glucose 112 H (74-99) mg/dL Thrombosis Risk Factor Assmnt - Choose All That Apply Each Factor Represents 1 point: Obesity (BMI >25) Other Risk Factors: Yes Each Risk Factor Represents 2 Points: Age 61-74 years, Laparoscopic surgery Other congenital or acquired thrombophilia - If yes, enter type in comment: No Thrombosis Risk Factor Assessment Total Risk Factor Score: 5 Thrombosis Risk Factor Assessment Level: High Risk Assessment and Plan Plan: -Acute cholecystitis, status post acute laparoscopic cholecystectomy. Postop care as per surgical team. -Fever, leukocytosis of 14 K , mostly related to her acute cholecystitis, continue with antibiotics Zosyn -Chest pain syndrome, most likely this is related to the epigastric pain from her cholecystitis, patient has been evaluated by scaler team. CTPA was negative for infection -History of hypertension, was on T Jatin on admission was held, her blood pressure is controlled currently of 109/55 DVT prophylaxis on subcu heparin GI prophylaxis on Protonix Time with Patient: Greater than 30
[2018-03-26] MEDS: PIPERACILLIN-TAZOBACTAM 3.375 GM in DEXTROSE/WATER 1 50ML.BAG IVPB SCH (18:25)
[2018-03-26] MEDS: SODIUM CHLORIDE 0.9% 1,000 ML IV SCH (18:25)
[2018-03-26] MEDS: HYDROcodone/APAP 5-325MG 1 EACH TAB PO PRN (21:05)
[2018-03-26] MEDS: PANTOPRAZOLE 40 MG/10 ML VIAL IVP SCH (21:08)
[2018-03-27] MEDS: HEPARIN SODIUM,PORCINE 5,000 UNIT/ML 1 ML VIAL SQ SCH ×2 (00:41→08:27)
[2018-03-27] MEDS: PIPERACILLIN-TAZOBACTAM 3.375 GM in DEXTROSE/WATER 1 50ML.BAG IVPB SCH ×2 (00:41→08:58)
[2018-03-27 06:36] LABS: Basophils % (A) 0 %; Eosinophils # (A) 0.1 k/uL (0-0.7); Eosinophils % (A) 1 %; HCT 34.8 % (34.0-46.0); HGB 11.6 gm/dL (11.4-16.0); Lymphocytes # (A) 0.9 k/uL (1.0-4.8); Lymphocytes % (A) 9 %; MCH 31.2 pg (25.0-35.0); MCHC 33.4 g/dL (31.0-37.0); MCV 93.6 fL (80.0-100.0); Mean Platelet Volume 6.1; Monocytes # (A) 0.3 k/uL (0-1.0); Monocytes % (A) 3 %; Neutrophils % (A) 86 %; Platelet Count 262 k/uL (150-450); RBC 3.71 m/uL (3.80-5.40); RDW 12.8 % (11.5-15.5); WBC 9.3 k/uL (3.8-10.6)
[2018-03-27 06:46] LABS: ALT 26 U/L (9-52); AST 22 U/L (14-36); Alkaline Phosphatase 69 U/L (38-126); Anion Gap 11 mmol/L; Blood Urea Nitrogen 16 mg/dL (7-17); Calcium 8.4 mg/dL (8.4-10.2); Carbon Dioxide 22 mmol/L (22-30); Chloride 108 mmol/L (98-107); Cholesterol 152 mg/dL (<200); Glucose 126 mg/dL (74-99); HDL Cholesterol 43 mg/dL (40-60); LDL Cholesterol,Calculated 87 mg/dL (0-99); Potassium 4.3 mmol/L (3.5-5.1); Sodium 141 mmol/L (137-145); Total Bilirubin 1.3 mg/dL (0.2-1.3); Total Protein 5.5 g/dL (6.3-8.2); Triglycerides 112 mg/dL (<150)
[2018-03-27] MEDS: SODIUM CHLORIDE 0.9% 1,000 ML IV SCH ×2 (08:17→08:26)
[2018-03-27] MEDS: CHOLECALCIFEROL 1,000 UNIT TAB PO SCH (08:27)
[2018-03-27] MEDS: ATENOLOL 25 MG TAB PO SCH (08:27)
[2018-03-27] MEDS: PANTOPRAZOLE 40 MG/10 ML VIAL IVP SCH (08:27)
[2018-03-27] MEDS: HYDROcodone/APAP 5-325MG 1 EACH TAB PO PRN ×2 (08:28→13:15)
[2018-03-27] MEDS ORDERED: ASPIRIN 325 MG TAB PO SCH (09:00)
[2018-03-27] MEDS ORDERED: ASPIRIN 81 MG PO SCH (09:00)
[2018-03-27 12:11] VITALS: BP 105/51; PULSE 69; RESP 18; TEMP 98
--- NOTE | 2018-03-27 12:42 | P.PN ---
Subjective Progress Note Date: 03/27/18 Principal diagnosis: Acute cholecystitis Patient doing well today. White blood cell count 9.3. Liver enzymes normal. Mild upper abdominal discomfort. Overall feels much better than preoperatively. Objective - Vital Signs Vital signs: Vital Signs Temp 98.0 F 03/27/18 12:00 Pulse 69 03/27/18 12:00 Resp 18 03/27/18 12:00 BP 105/51 03/27/18 12:00 Pulse Ox 94 L 03/27/18 12:00 Intake & Output 03/26/18 03/27/18 03/27/18 18:59 06:59 18:59 Intake Total 800 0 320 Output Total 10 Balance 790 0 320 Weight 96.8 kg 96.8 kg Intake: IV 800 Oral 0 320 Output: Estimated Blood Loss 10 Other: Voiding Method Toilet Toilet # Voids 1 - Exam Abdomen: Soft, nondistended, incision clean and dry, mild tenderness - Labs CBC & Chem 7: 03/27/18 06:11 03/27/18 06:11 Labs: Abnormal Lab Results - Last 24 Hours (Table) 03/27/18 03/27/18 Range/Units 06:11 06:11 RBC 3.71 L (3.80-5.40) m/uL Neutrophils # 8.0 H (1.3-7.7) k/uL Lymphocytes # 0.9 L (1.0-4.8) k/uL Chloride 108 H (98-107) mmol/L Glucose 126 H (74-99) mg/dL Total Protein 5.5 L (6.3-8.2) g/dL Albumin 3.0 L (3.5-5.0) g/dL Assessment and Plan (1) Acute cholecystitis due to biliary calculus Narrative/Plan: Advance diet. Increase activity. Stable for discharge. Current Visit: Yes Status: Acute Code(s): K80.00 - CALCULUS OF GALLBLADDER W ACUTE CHOLECYST W/O OBSTRUCTION SNOMED Code(s): 34181680723641
--- NOTE | 2018-03-27 13:13 | P.DS ---
Providers Date of admission: 03/26/18 02:58 Attending physician: Guille Marina Consults: 03/26/18 02:59 Consult Physician Urgent Consulting Provider: Giuseppe Blair Consult Reason/Comments: Chest pain, hypertension Do you want consulting provider notified?: Yes 03/26/18 12:50 Consult Physician Stat Consulting Provider: Aniceto Lopez Consult Reason/Comments: gallstones Do you want consulting provider notified?: Yes Primary care physician: Reta Carter [facility] Course: Ms. Espinal is a 63-year-old female with a past medical history of hypertension, GERD admitted to the hospital with a chief complaint of 4 epigastric/chest pain. Patient was initially thought to have chest pain for which she she had an echo and a CT for PE done. The patient also had a white count and negative temp and she eventually had an ultrasound of the gallbladder showing gallstones with mild enlargement of the common bile duct. So surgical services have been consulted and the patient went laparoscopic cholecystectomy on 03/26/2018. Patient did receive a couple of doses of Zosyn before and after the surgical procedure. The patient is postop day 1 today, was evaluated by Dr. Cutler and has been cleared for discharge. Patient's discharge vitals and physical exam within normal limits. Patient has some mild abdominal soreness at the site of the surgical site - abdominal exam - soft nondistended and the surgical scar looks clean. DISCHARGE DIAGNOSIS Acute cholecystitis- due to gallstones Hypertension GERD History of nephrolithiasis Hiatal hernia Diverticulosis History of appendectomy and hysterectomy Patient Condition at Discharge: Good Plan - Discharge Summary Discharge Rx Participant: No New Discharge Prescriptions: Continue Omeprazole [PriLOSEC] 20 mg PO BID Atenolol [Tenormin] 25 mg PO DAILY Cholecalciferol [Vitamin D3] 1,000 unit PO DAILY Discontinued Ibuprofen [Motrin Ib] 200 - 400 mg PO Q6H PRN PRN Reason: Pain Discharge Medication List Omeprazole [PriLOSEC] 20 mg PO BID 04/13/14 [History] Atenolol [Tenormin] 25 mg PO DAILY 08/14/14 [History] Cholecalciferol [Vitamin D3] 1,000 unit PO DAILY 03/25/18 [History] Follow up Appointment(s)/Referral(s): Aniceto Lopez MD [Medical Doctor] - 04/01/18 Olivia Mcduffie MD [Primary Care Provider] - 1-2 days Discharge Disposition: HOME SELF-CARE
== END 2018-03-27 14:39 | disposition home or self-care (01) ==
LOC: EC 23:12 → 3OBS 03-26 02:58
PROVIDERS: ADMIT Hospitalist; ATTEND Hospitalist
DX: K80.00 Calculus of gallbladder with acute cholecystitis without obstruction (principal); I10 Essential (primary) hypertension; K21.9 Gastro-esophageal reflux disease without esophagitis; R07.89 Other chest pain; R79.89 Other specified abnormal findings of blood chemistry; G43.909 Migraine, unspecified, not intractable, without status migrainosus; I35.1 Nonrheumatic aortic (valve) insufficiency; K57.30 Diverticulosis of large intestine without perforation or abscess without bleeding; K44.9 Diaphragmatic hernia without obstruction or gangrene; E66.9 Obesity, unspecified; Z68.36 Body mass index [BMI] 36.0-36.9, adult; Z87.442 Personal history of urinary calculi; Z86.19 Personal history of other infectious and parasitic diseases; Z90.89 Acquired absence of other organs; Z90.710 Acquired absence of both cervix and uterus; Z79.899 Other long term (current) drug therapy; Z82.3 Family history of stroke; Z82.49 Family history of ischemic heart disease and other diseases of the circulatory system; Z84.1 Family history of disorders of kidney and ureter
CPT/HCPCS: 47562; 99291 ×2; 96374 ×2; 96375 ×4; 96376 ×2; 96361 ×15; 36415; 94760; 93005; 93306; 85379; 88304; 80061; 80053 ×2; 82550 ×2; 82553 ×2; 83735; 84484 ×2; 85025 ×2; 85610; 85730; 71046; 76705; 71275; G0378 ×2; J2250; J0360; J1644 ×2; J2710; J2405; J2001; J3010; J2270; J2543; J1100; J2370; J0330; J2704; C9113 ×2; Q9967

== ENCOUNTER → 2019-01-06 | Outpatient (CLI) | payer MEDICAID ==
[2019-01-06 17:48] LABS: Basophils % (A) 1 %; Eosinophils # (A) 0.5 k/uL (0-0.7); Eosinophils % (A) 7 %; HCT 36.2 % (34.0-46.0); HGB 12.1 gm/dL (11.4-16.0); Lymphocytes # (A) 1.2 k/uL (1.0-4.8); Lymphocytes % (A) 18 %; MCH 32.1 pg (25.0-35.0); MCHC 33.5 g/dL (31.0-37.0); MCV 95.9 fL (80.0-100.0); Mean Platelet Volume 6.5; Monocytes # (A) 0.4 k/uL (0-1.0); Monocytes % (A) 6 %; Neutrophils # (A) 4.3 k/uL (1.3-7.7); Neutrophils % (A) 65 %; Platelet Count 242 k/uL (150-450); RBC 3.78 m/uL (3.80-5.40); WBC 6.7 k/uL (3.8-10.6)
[2019-01-06 19:07] LABS: Erythrocyte Sedimentation Rate 36 mm/hr (0-20)
[2019-01-06 22:50] LABS: Albumin 3.8 g/dL (3.80-4.90); Albumin/Globulin Ratio 1.27 (1.60-3.17); Anion Gap 5.7 mmol/L (4.00-12.00); Calcium 8.7 mg/dL (8.7-10.3); Carbon Dioxide 29.3 mmol/L (21.6-31.8); Potassium 4.4 mmol/L (3.5-5.5); Total Bilirubin 0.5 mg/dL (0.3-1.2); Total Protein 6.8 g/dL (6.2-8.2)
== END | disposition home or self-care (01) ==
LOC: LABWHC1 16:44
PROVIDERS: ATTEND Internal Medicine
DX: L30.9 Dermatitis, unspecified (principal); R21 Rash and other nonspecific skin eruption
CPT/HCPCS: 36415; 80053; 85025; 85652; 86038

== ENCOUNTER → 2020-05-25 | Outpatient (CLI) | payer MEDICAID ==
[2020-05-25 18:59] LABS: Albumin 3.9 g/dL (3.80-4.90); Albumin/Globulin Ratio 1.63 (1.60-3.17); Anion Gap 9.1 mmol/L (4.00-12.00); BUN/Creat Ratio 17.5 Ratio (12.00-20.00); Calcium 8.9 mg/dL (8.7-10.3); Carbon Dioxide 24.9 mmol/L (21.6-31.8); Globulin 2.4 g/dL (1.6-3.3); Non-African American GFR(CKD) 76.8 (60.0-200.0); Potassium 4.3 mmol/L (3.5-5.5); Total Bilirubin 1.4 mg/dL (0.2-1.2); Total Protein 6.3 g/dL (6.2-8.2)
[2020-05-25 19:10] LABS: T4, Free (Free Thyroxine) 1.1 ng/dL (0.80-1.80)
== END | disposition home or self-care (01) ==
LOC: LABWHC1 14:14
PROVIDERS: ATTEND Internal Medicine
DX: E11.9 Type 2 diabetes mellitus without complications (principal); R25.2 Cramp and spasm
CPT/HCPCS: 36415; 80053; 84439; 84443

== ENCOUNTER → 2021-02-14 | Outpatient (CLI) | payer MEDICAID ==
[2021-02-14 19:22] LABS: HCT 42.5 % (37.2-46.3); MCH 31.2 pg (27.0-32.0); MCHC 32.9 g/dL (32.0-37.0); MCV 94.7 fL (80.0-97.0); Mean Platelet Volume 9.5 fL (9.5-12.2); Platelet Count 297 X 10*3/uL (140-440); RBC 4.49 X 10*6/uL (4.10-5.20); RDW 12.1 % (11.5-14.5); WBC 6.84 X 10*3/uL (4.50-10.00)
[2021-02-15 14:41] LABS: Albumin 4.3 g/dL (3.80-4.90); Albumin/Globulin Ratio 1.39 (1.60-3.17); Anion Gap 14.4 mmol/L (4.00-12.00); BUN/Creat Ratio 13.75 Ratio (12.00-20.00); Calcium 9.2 mg/dL (8.7-10.3); Carbon Dioxide 22.6 mmol/L (21.6-31.8); Globulin 3.1 g/dL (1.6-3.3); Non-African American GFR(CKD) 76.8 (60.0-200.0); Potassium 4.1 mmol/L (3.5-5.5); Total Bilirubin 1.3 mg/dL (0.3-1.2); Total Protein 7.4 g/dL (6.2-8.2)
[2021-02-15 14:50] LABS: T4, Free (Free Thyroxine) 1.1 ng/dL (0.80-1.80)
== END | disposition home or self-care (01) ==
LOC: LABWHC1 15:11
PROVIDERS: ATTEND Internal Medicine
DX: M79.10 Myalgia, unspecified site (principal); R42 Dizziness and giddiness; R53.83 Other fatigue; R06.00 Dyspnea, unspecified
CPT/HCPCS: 36415; 80053; 84439; 84443; 85027; 85379

== ENCOUNTER → 2021-03-26 | Outpatient (CLI) | payer MEDICAID ==
[2021-03-27 11:53] LABS: Alt. alternata IgE Class CLASS 0; Alternaria alternata IgE <0.10 kU/L (<0.10); Asperg. fumagatus IgE <0.10 kU/L (<0.10); Asperg. fumagatus IgE Class CLASS 0; Candida albicans IgE Class CLASS 0; Clad herbarum IgE <0.10 kU/L (<0.10); Clad herbarum IgE Class CLASS 0; Latex IgE Class CLASS 0; Mucor racemosus IgE <0.10 kU/L (<0.10); Mucor racemosus IgE Class CLASS 0; Penicillium chrysogenum IgE <0.10 kU/L (<0.10); Penicillium chrysogenum IgE Cl CLASS 0
[2021-03-30 21:53] LABS: Alternaria Alternata IgG 7.8 mcg/mL (< 13.6); Aspergillus fumigatus IgG Not detected (Not detected); Aureobasidium pullulans IgG 8.8 mcg/mL (< 13.6); Cladosporium herbarium IgG 18.4 mcg/mL (< 14.7); Phoma ssp. IgG 5.1 mcg/mL (< 6.6); Saccaharomospora viridis Not detected (Not detected); Saccaharopoly. rectivirgula Not detected (Not detected)
== END | disposition home or self-care (01) ==
LOC: LABWHC1 13:31
PROVIDERS: ATTEND Internal Medicine Sleep Medicine
DX: R05 Cough (principal); Z20.822 Contact with and (suspected) exposure to COVID-19
CPT/HCPCS: 86003; 86001; 86609; 86606; 82785; 36415; U0003; U0005

== ENCOUNTER → 2021-03-26 | Outpatient (CLI) | payer MEDICAID ==
--- NOTE | 2021-03-26 14:59 | XR ---
EXAMINATION TYPE: XR chest 2V DATE OF EXAM: 03/26/2021 COMPARISON: 03/26/2018 INDICATION: Short of breath, post COVID TECHNIQUE: Frontal and lateral views of the chest are obtained. FINDINGS: The heart size is normal. The pulmonary vasculature is normal. There is a mild infiltrate at the lingula. Correlate for atelectasis. Pneumonia could be considered. Lungs are otherwise clear. IMPRESSION: 1. Infiltrate at the left cardiac apex. Correlate for atelectasis or pneumonia.
== END | disposition home or self-care (01) ==
LOC: RADXRMAIN 13:38
PROVIDERS: ATTEND Internal Medicine Sleep Medicine
DX: I51.5 Myocardial degeneration (principal); Z86.16 Personal history of COVID-19
CPT/HCPCS: 71046

== ENCOUNTER → 2021-09-05 | Outpatient (CLI) | payer MEDICAID, OTHER ==
[2021-09-05 15:24] LABS: African American GFR (CKD) >90 (>60 ml/min/1.73 sqM); Blood Urea Nitrogen 13 mg/dL (7-17); Non-African American GFR(CKD) >90 (>60 ml/min/1.73 sqM)
--- NOTE | 2021-09-05 16:17 | CT ---
EXAMINATION TYPE: CT angio chest DATE OF EXAM: 09/05/2021 COMPARISON: 03/26/2018 HISTORY: chest pain, SOB, covid in Oct 2020 CT DLP: 457.8 mGycm, Automated exposure control for dose reduction was used. CONTRAST: Performed injected with 100 mL of Isovue 370. TECHNIQUE: Axial images were obtained at 5 mm thick sections. Reconstructed images are reviewed on [employer] computer in the coronal plane. FINDINGS: Portion of the thyroid visualized is normal. No suspicious lung nodules or focal infiltrates are present. No enlarged mediastinal or hilar adenopathy is evident. The ascending aorta diameter at the level o f the main pulmonary artery is 2.8 cm. The main pulmonary artery diameter at the bifurcation is 2.[address] sections are obtained through the upper abdomen. Abdomen is essentially unremarkable. Gall bladder is surgically absent IMPRESSIONS: 1. No acute pulmonary embolism.
== END | disposition home or self-care (01) ==
LOC: RADCTMAIN 14:35
PROVIDERS: ATTEND Internal Medicine Sleep Medicine
DX: R06.02 Shortness of breath (principal); R07.9 Chest pain, unspecified
CPT/HCPCS: 82565; 84520; 71275; 36415; Q9967

== ENCOUNTER 2021-10-19 16:53 | Observation (INO) | payer MEDICAID, MEDICARE ==
[2021-10-19] MEDS ORDERED: ASPIRIN 81 MG PO STA (17:32)
[2021-10-19] MEDS ORDERED: NITROGLYCERIN SL TABS 0.4 MG TAB SUBLINGUAL STA ×3 (17:32)
--- NOTE | 2021-10-19 17:34 | ED ---
General Adult HPI - General Chief complaint: Chest Pain Stated complaint: chest,shoulder,back pain Time Seen by Provider: 10/19/21 17:20 Source: patient, family, RN notes reviewed Mode of arrival: ambulatory Limitations: no limitations - History of Present Illness Initial comments: Patient is a pleasant 66-year-old female presenting to the emergency Department with chest discomfort. Onset of symptoms was a couple of days ago. Discomfort feels like tightness. Patient does have some chronic back discomfort however that is worse. Discomfort does not change with position changes. Patient tried a muscle relaxer without improvement of symptoms. Symptoms seem to worsen with exertion. Patient does have some increase in her chronic dyspnea. Patient has developed chronic dyspnea since COVID-19 infection almost year ago. No cough. Patient had minimal nausea at one point that has resolved. No diaphoresis. No history of similar symptoms previously. No leg pain or leg swelling. - Related Data Home Medications Medication Instructions Recorded Confirmed Omeprazole [PriLOSEC] 20 mg PO BID 04/13/14 10/19/21 Atenolol [Tenormin] 25 mg PO DAILY 08/14/14 10/19/21 Albuterol Sulfate [Proair Hfa] 2 puff INHALATION RT-QID PRN 10/19/21 10/19/21 Diclofenac Sodium [Voltaren] 75 mg PO BID PRN 10/19/21 10/19/21 Fluticasone/Vilanterol [Breo 1 puff INHALATION RT-DAILY 10/19/21 10/19/21 Ellipta 100-25 Mcg Inhaler] Ibuprofen [Motrin Ib] 400 mg PO Q8H PRN 10/19/21 10/19/21 Meclizine [Antivert] 25 mg PO BID PRN 10/19/21 10/19/21 Methocarbamol [Robaxin-750] 750 mg PO BID PRN 10/19/21 10/19/21 Montelukast [Singulair] 10 mg PO HS 10/19/21 10/19/21 Allergies Allergy/AdvReac Type Severity Reaction Status Date / Time No Known Allergies Allergy Verified 10/19/21 18:29 Review of Systems ROS Statement: Those systems with pertinent positive or pertinent negative responses have been documented in the HPI. ROS Other: All systems not noted in ROS Statement are negative. Constitutional: Denies: fever Eyes: Denies: eye pain ENT: Denies: ear pain Respiratory: Denies: cough Cardiovascular: Reports: as per HPI, chest pain Endocrine: Denies: fatigue Gastrointestinal: Denies: abdominal pain Genitourinary: Denies: dysuria Musculoskeletal: Reports: as per HPI, back pain Skin: Denies: rash Neurological: Denies: weakness Past Medical History Past Medical History: GERD/Reflux, Hypertension Additional Past Medical History / Comment(s): Aortic valve regurg, H pylori more than once, migraines, kidney stones surgically removed, hiatal henia, diverticulosis. History of Any Multi-Drug Resistant Organisms: None Reported Past Surgical History: Appendectomy, Hysterectomy Additional Past Surgical History / Comment(s): KIDNEY STONES REMOVED, 2013 EGD/COLONOSCOPY Past Anesthesia/Blood Transfusion Reactions: No Reported Reaction Past Psychological History: No Psychological Hx Reported Smoking Status: Never smoker Past Alcohol Use History: None Reported Past Drug Use History: None Reported - Past Family History Father Family Medical History: CVA/TIA Additional Family Medical History / Comment(s): Father of a CVA at the age of 70yrs. Mother Family Medical History: Coronary Artery Disease (CAD), Renal Disease Additional Family Medical History / Comment(s): Mother of complications after CABG. General Exam Limitations: no limitations General appearance: alert, in no apparent distress Head exam: Present: normocephalic Eye exam: Present: normal appearance Neck exam: Present: normal inspection Respiratory exam: Present: normal lung sounds bilaterally. Absent: chest wall tenderness Cardiovascular Exam: Present: regular rate, normal rhythm Expanded Peripheral pulses: 2+: Radial (R), Radial (L), Posterior Tibialis (R), Posterior Tibialis (L), Dorsalis Pedis (R), Dorsalis Pedis (L) GI/Abdominal exam: Present: soft. Absent: tenderness Extremities exam: Present: normal inspection. Absent: pedal edema, calf tenderness Neurological exam: Present: alert Psychiatric exam: Present: normal affect, normal mood Skin exam: Present: normal color Course Vital Signs 10/19/21 10/19/21 10/19/21 17:16 17:57 18:04 Temperature 98.1 F Pulse Rate 86 78 89 Respiratory 20 19 19 Rate Blood Pressure 182/89 171/92 148/85 O2 Sat by Pulse 95 97 Oximetry 10/19/21 18:55 Temperature Pulse Rate 67 Respiratory 18 Rate Blood Pressure 102/63 O2 Sat by Pulse 95 Oximetry EKG Findings - EKG Comments: EKG Findings:: Normal sinus rhythm 3-77. IA 126. QRS 86. QT 396. QTc 440. Normal axis. Inferior Q waves. No acute ST change. Medical Decision Making - Medical Decision Making Patient reevaluated and resting comfortably in bed. Patient and family updated on results and plan. Case was discussed with Dr. Marina, who will admit for Dr. Camejo. Computed tomography scan has been ordered. - Lab Data Result diagrams: 10/19/21 17:47 10/19/21 17:47 Lab Results 10/19/21 10/19/21 10/19/21 Range/Units 17:47 17:47 17:47 WBC 8.4 (3.8-10.6) k/uL RBC 4.48 (3.80-5.40) m/uL Hgb 14.7 (11.4-16.0) gm/dL Hct 43.3 (34.0-46.0) % MCV 96.6 (80.0-100.0) fL MCH 32.7 (25.0-35.0) pg MCHC 33.9 (31.0-37.0) g/dL RDW 12.9 (11.5-15.5) % Plt Count 297 (150-450) k/uL MPV 6.7 Neutrophils % 86 % Lymphocytes % 9 % Monocytes % 3 % Eosinophils % 1 % Basophils % 0 % Neutrophils # 7.2 (1.3-7.7) k/uL Lymphocytes # 0.8 L (1.0-4.8) k/uL Monocytes # 0.3 (0-1.0) k/uL Eosinophils # 0.1 (0-0.7) k/uL Basophils # 0.0 (0-0.2) k/uL PT 10.0 (9.0-12.0) sec INR 0.9 (<1.2) APTT 22.1 (22.0-30.0) sec D-Dimer 0.94 H (<0.60) mg/L FEU Sodium 137 (137-145) mmol/L Potassium 4.3 (3.5-5.1) mmol/L Chloride 105 (98-107) mmol/L Carbon Dioxide 21 L (22-30) mmol/L Anion Gap 11 mmol/L BUN 14 (7-17) mg/dL Creatinine 0.67 (0.52-1.04) mg/dL Est GFR (CKD-EPI)AfAm >90 (>60 ml/min/1.73 sqM) Est GFR (CKD-EPI)NonAf >90 (>60 ml/min/1.73 sqM) Glucose 275 H (74-99) mg/dL Calcium 9.1 (8.4-10.2) mg/dL Magnesium 1.7 (1.6-2.3) mg/dL Total Bilirubin 1.0 (0.2-1.3) mg/dL AST 28 (14-36) U/L ALT 19 (4-34) U/L Alkaline Phosphatase 103 (38-126) U/L Troponin I (0.000-0.034) ng/mL NT-Pro-B Natriuret Pep pg/mL Total Protein 7.1 (6.3-8.2) g/dL Albumin 3.9 (3.5-5.0) g/dL Amylase 34 (30-110) U/L Lipase 31 (23-300) U/L 10/19/21 10/19/21 Range/Units 17:47 17:47 WBC (3.8-10.6) k/uL RBC (3.80-5.40) m/uL Hgb (11.4-16.0) gm/dL Hct (34.0-46.0) % MCV (80.0-100.0) fL MCH (25.0-35.0) pg MCHC (31.0-37.0) g/dL RDW (11.5-15.5) % Plt Count (150-450) k/uL MPV Neutrophils % % Lymphocytes % % Monocytes % % Eosinophils % % Basophils % % Neutrophils # (1.3-7.7) k/uL Lymphocytes # (1.0-4.8) k/uL Monocytes # (0-1.0) k/uL Eosinophils # (0-0.7) k/uL Basophils # (0-0.2) k/uL PT (9.0-12.0) sec INR (<1.2) APTT (22.0-30.0) sec D-Dimer (<0.60) mg/L FEU Sodium (137-145) mmol/L Potassium (3.5-5.1) mmol/L Chloride (98-107) mmol/L Carbon Dioxide (22-30) mmol/L Anion Gap mmol/L BUN (7-17) mg/dL Creatinine (0.52-1.04) mg/dL Est GFR (CKD-EPI)AfAm (>60 ml/min/1.73 sqM) Est GFR (CKD-EPI)NonAf (>60 ml/min/1.73 sqM) Glucose (74-99) mg/dL Calcium (8.4-10.2) mg/dL Magnesium (1.6-2.3) mg/dL Total Bilirubin (0.2-1.3) mg/dL AST (14-36) U/L ALT (4-34) U/L Alkaline Phosphatase (38-126) U/L Troponin I <0.012 (0.000-0.034) ng/mL NT-Pro-B Natriuret Pep 430 pg/mL Total Protein (6.3-8.2) g/dL Albumin (3.5-5.0) g/dL Amylase (30-110) U/L Lipase (23-300) U/L - Radiology Data Radiology results: image reviewed (Chest x-ray shows no acute process) Disposition Clinical Impression: Chest pain Disposition: ADMITTED IP TO THIS HOSP Is patient prescribed a controlled substance at d/c from ED?: No Referrals: Olivia Mcduffie MD [Primary Care Provider] - 1-2 days Decision Time: 19:40
[2021-10-19 17:55] LABS: Basophils % (A) 0 %; Eosinophils # (A) 0.1 k/uL (0-0.7); Eosinophils % (A) 1 %; HCT 43.3 % (34.0-46.0); HGB 14.7 gm/dL (11.4-16.0); Lymphocytes # (A) 0.8 k/uL (1.0-4.8); Lymphocytes % (A) 9 %; MCH 32.7 pg (25.0-35.0); MCHC 33.9 g/dL (31.0-37.0); MCV 96.6 fL (80.0-100.0); Mean Platelet Volume 6.7; Monocytes # (A) 0.3 k/uL (0-1.0); Monocytes % (A) 3 %; Neutrophils # (A) 7.2 k/uL (1.3-7.7); Neutrophils % (A) 86 %; Platelet Count 297 k/uL (150-450); RBC 4.48 m/uL (3.80-5.40); RDW 12.9 % (11.5-15.5); WBC 8.4 k/uL (3.8-10.6)
[2021-10-19 18:06] LABS: ALT 19 U/L (4-34); AST 28 U/L (14-36); African American GFR (CKD) >90 (>60 ml/min/1.73 sqM); Albumin 3.9 g/dL (3.5-5.0); Alkaline Phosphatase 103 U/L (38-126); Amylase 34 U/L (30-110); Anion Gap 11 mmol/L; Blood Urea Nitrogen 14 mg/dL (7-17); Calcium 9.1 mg/dL (8.4-10.2); Carbon Dioxide 21 mmol/L (22-30); Chloride 105 mmol/L (98-107); Glucose 275 mg/dL (74-99); Lipase 31 U/L (23-300); Magnesium 1.7 mg/dL (1.6-2.3); Non-African American GFR(CKD) >90 (>60 ml/min/1.73 sqM); Sodium 137 mmol/L (137-145); Total Protein 7.1 g/dL (6.3-8.2)
[2021-10-19 18:10] LABS: INR 0.9 (<1.2); Partial Thromboplastin Time 22.1 sec (22.0-30.0)
--- NOTE | 2021-10-19 18:13 | XR ---
EXAMINATION TYPE: XR chest 2V DATE OF EXAM: 10/19/2021 COMPARISON: 03/26/2018 HISTORY: Chest pain TECHNIQUE: 2 views FINDINGS: Heart is normal. Lungs are clear of infiltrate. There is no heart failure. There are no hil ar masses. Costophrenic angles are clear. IMPRESSION: No active cardiopulmonary disease. Normal heart. No change.
[2021-10-19 18:17] LABS: Potassium 4.3 mmol/L (3.5-5.1)
[2021-10-19] MEDS ORDERED: MORPHINE SULFATE 4 MG/ML SYRINGE IVP STA (18:46)
[2021-10-19] MEDS ORDERED: NITROGLYCERIN SL TABS 0.4 MG TAB SUBLINGUAL PRN (19:40)
--- NOTE | 2021-10-19 19:57 | CT ---
EXAMINATION TYPE: CT angio chest DATE OF EXAM: 10/19/2021 COMPARISON: 09/05/2021 HISTORY: Back and chest pain. CT DLP: 501.3 mGycm Automated exposure control for dose reduction was used. CONTRAST: Performed with IV Contrast, patient injected with 100ml mL of Isovue 370. Images obtained from the thoracic inlet to the diaphragm without IV contrast. There are Three-D postp rocessed images. The lungs are clear of consolidation. There is no pleural effusion. Heart size is fairly normal. Ther e is no pericardial effusion. There is no mediastinal adenopathy. There are no hilar masses. There is intact thoracic aorta. There is no aneurysm or dissection. There is no evidence of filling defect in the pulmonary arteries. The t horacic spine is intact. There is no compression fracture. IMPRESSION: Negative exam. No evidence of pulmonary embolism. Fatty infiltration of the liver. No change compared to old exam.
--- NOTE | 2021-10-19 20:52 | HP ---
HISTORY AND PHYSICAL CHIEF COMPLAINTS: Chest pain and shoulder pain. HISTORY OF PRESENT ILLNESS: This 66-year-old woman with a past medical history of multiple medical problems, including GERD, hypertension, history of aortic valve regurgitation, H pylori, being followed by Dr. cMduffie in the outpatient setting, also had long COVID. The patient had COVID last year. The patient had brain fog and shortness of breath and multiple symptomatology subsequently. Now the patient is currently complaining of shoulder pain which started several days ago which is radiating to the front of the neck, and the patient is admitted for further evaluation and treatment. In the emergency room the D- dimer was found to be 0.94. CT angio is being arranged. Glucose is also elevated. There is no history of any fever, rigor or chills at this time. PAST MEDICAL HISTORY: History of GERD, hypertension, history of aortic valve regurgitation, long COVID. HOME MEDICATIONS: Home medications include albuterol, omeprazole, Singulair, Robaxin, Antivert, Motrin, Breo Ellipta, Voltaren, Tenormin. Doses are reviewed. ALLERGIES: NONE. FAMILY HISTORY: History of CVA. SOCIAL HISTORY: No history of smoking. No history of alcohol intake. REVIEW OF SYSTEMS: ENT: As mentioned earlier. CARDIOVASCULAR SYSTEM: As mentioned earlier. RESPIRATORY SYSTEM: As mentioned earlier. GI: No nausea, vomiting, diarrhea. : No dysuria, retention. NERVOUS SYSTEM: No numbness, weakness. ALLERGY/IMMUNOLOGY: No asthma or hay fever. MUSCULOSKELETAL: As mentioned earlier. HEMATOLOGY/ONCOLOGY: No history of anemia. ENDOCRINE: No history of diabetes or hypothyroidism. CONSTITUTIONAL: As mentioned earlier. DERMATOLOGY: Negative. RHEUMATOLOGY: Negative. PSYCHIATRY: Negative. PHYSICAL EXAMINATION: Patient is alert, oriented x3. Pulse is 67, blood pressure 102/62, respiration 18, temperature 98.1, pulse ox 92% on room air. HEENT: Conjunctivae normal. NECK: No jugular venous distention. CARDIOVASCULAR: S1, S2 muffled. RESPIRATION: Breath sounds diminished at the bases. A few scattered rhonchi. No crackles. ABDOMEN: Soft, nontender. LEGS: No edema. No swelling. NERVOUS SYSTEM: Higher functions as mentioned earlier. Moves all 4 limbs. No focal motor or sensory deficit. LYMPHATICS: No lymph node palpable in neck, axillae or groin. SKIN: No ulcer, rash, bleeding. JOINTS: No active deforming arthropathy. LABS: CBC within normal limits and D-dimer is 0.94. Glucose 275. ASSESSMENT: 1. Chest pain and back pain for evaluation. Rule out coronary artery disease and acute myocardial infarction. 2. Rule out pulmonary embolism or aortic . 3. Elevated D-dimer. 4. Long COVID. 5. Elevated glucose and diabetes mellitus, type 2. 6. Hypertension. 7. Gastroesophageal reflux disease. 8. History of aortic valve regurgitation. 9. History of migraines. 10.History of Helicobacter pylori. 12.History of hiatal hernia. 13.History of diverticulosis. 14.History of appendectomy. 15.History of hysterectomy. RECOMMENDATIONS AND DISCUSSION: In this 66-year-old woman who presented with multiple complex medical issues, we will monitor the patient closely, continue the current medications. I would recommend a CT scan of the chest with contrast for possible aortic aneurysm and CT angio. Otherwise monitor. Resume the home medications. Monitor blood sugars closely. Accu-Cheks before meals and at bedtime. Hemoglobin A1c. Cardiology consultation. Guarded prognosis because of multiple complex medical issues. Further recommendations to follow. A copy of this dictation is being forwarded to Dr. Mcduffie, who is the primary physician. MMQUYNHL / IJN: [id number] / ALICIA
[2021-10-19 22:11] LABS: Glucose,Whole Blood 159 mg/dL (75-99)
[2021-10-19] MEDS: INSULIN ASPART (NovoLOG) 100 UNIT/ML VIAL SQ SCH (23:38)
[2021-10-20] MEDS: NITROGLYCERIN OINT 1 INCH/GM PACKET TOPICAL SCH ×5 (04:50→22:30)
[2021-10-20] MEDS ORDERED: MORPHINE SULFATE 4 MG/ML SYRINGE IVP STA (04:51)
[2021-10-20 08:11] LABS: Glucose,Whole Blood 134 mg/dL (75-99)
[2021-10-20] MEDS ORDERED: ASPIRIN 325 MG TAB PO SCH (09:00)
[2021-10-20] MEDS: INSULIN ASPART (NovoLOG) 100 UNIT/ML VIAL SQ SCH ×4 (09:01→21:36)
[2021-10-20 11:32] LABS: Chol/HDL Ratio 4.14 Ratio; LDL Cholesterol,Calculated 127.8 mg/dL (0.0-131.0)
[2021-10-20 12:19] LABS: Glucose,Whole Blood 151 mg/dL (75-99)
[2021-10-20] MEDS: atenoloL 25 MG TAB PO SCH (12:37)
[2021-10-20] MEDS: amLODIPine 10 MG TAB PO SCH (12:37)
--- NOTE | 2021-10-20 13:53 | CONS ---
SHANIKA Flores is a 66-year-old lady with a history of hypertension, gastroesophageal reflux disease, aortic regurgitation, who presented to hospital complaining of shortness of breath and shoulder pain that started several days ago and radiated to the front of her neck and to the back. Patient suffered from COVID infection earlier in the year and has developed symptoms suggestive of COVID long-hauler syndrome. On her presentation to the hospital, her D-dimer was elevated. She went on to have a CT scan of the chest that was negative for pulmonary embolism. EKG does not reveal acute ischemic changes and cardiac enzymes have been negative. At the time of my evaluation she appears comfortable at rest and is free of symptoms. I advised the patient to undergo an echocardiogram and stress test for further evaluation of her symptoms. PAST MEDICAL HISTORY: Significant for hypertension, GERD, and COVID long-hauler. MEDICATIONS: Medications at home include albuterol, omeprazole, Singulair, Robaxin, Antivert, Motrin, Breo, Voltaren, Tenormin. ALLERGIES: There are NO KNOWN DRUG ALLERGIES. FAMILY HISTORY: Negative for premature coronary artery disease. SOCIAL HISTORY: Negative for smoking, EtOH abuse or drug abuse. REVIEW OF SYSTEMS: HEENT is unremarkable. CARDIAC: As described above. RESPIRATORY: As described above. GI: Negative. GENITOURINARY: Negative. ALLERGY/IMMUNOLOGY: Negative. SKIN: Negative. MUSCULOSKELETAL: Significant for COVID long-hauler syndrome symptoms. HEMATOLOGY/ONCOLOGICAL: Negative. MILKING WORKER: Negative. ENDOCRINE: Negative. CONSTITUTIONAL: Negative. DERMATOLOGY: Negative. PSYCH: Negative. RHEUMATOLOGICAL: Negative. PHYSICAL EXAMINATION: Comfortable at rest. Vital signs are stable. Blood pressure is elevated at 170/90, respiratory rate is 18, oxygen saturation is 96% on room air. There is no jugular venous distention. Carotid upstroke is normal. There is no bruit. Chest exam reveals good air entry bilaterally. Heart exam reveals first and second heart sounds. No gallop. No murmur. No rub. Abdomen is soft, nontender. Examination of extremities did not reveal any edema. Peripheral pulses are felt. EKG shows sinus rhythm with evidence of prior inferior wall myocardial infarction. The CT scan of the chest was negative for pulmonary embolism. ASSESSMENT: 1. Precordial chest pain, sharp, atypical, probably noncardiac. 2. Uncontrolled hypertension. PLAN: I am going to schedule her for an echocardiogram and dobutamine stress echo tomorrow. If this is negative, she can be discharged home. If this is abnormal, we will investigate her further. Her blood pressure is poorly controlled. I am going to add amlodipine 10 mg daily. MMODL / IJN: [id number] /
[2021-10-20] MEDS ORDERED: DICLOFENAC SODIUM 75 MG PO PRN (15:16)
[2021-10-20] MEDS ORDERED: methocarbamoL 750 MG TAB PO PRN (15:16)
[2021-10-20] MEDS ORDERED: ALBUTEROL NEBULIZED 2.5 MG/3 ML INHALATION PRN (15:16)
[2021-10-20] MEDS ORDERED: MECLIZINE 25 MG TAB PO PRN (15:16)
[2021-10-20] MEDS: ATORVASTATIN 10 MG TAB PO SCH (16:40)
[2021-10-20] MEDS: HYDROcodone/APAP 5-325MG 1 EACH TAB PO PRN (16:40)
--- NOTE | 2021-10-20 17:00 | PN ---
PROGRESS NOTE DATE OF SERVICE: 10/19/2021 This 66-year-old woman who was admitted with chest pains is being closely monitored. Cardiology is following the patient closely. Dobutamine stress echo is being planned at this time. Chest CT did not show any acute abnormality. PHYSICAL EXAMINATION: Alert and oriented x3. Pulse is 87, blood pressure 184/87, respiration 20, temperature 98.7, pulse ox 98% on room air. HEENT: Conjunctivae normal. Oral mucosa moist. NECK: No jugular venous distention. No lymph node enlargement. CARDIOVASCULAR: S1, S2, muffled. No S3, no S4, RESPIRATORY: Diminished breath sounds at the bases. No rhonchi, no crackles. ABDOMEN: Soft, nontender. LEGS: No edema, no swelling. NERVOUS SYSTEM: No focal deficits. LABS: Glucose 151, cholesterol is 222 and triglycerides are 203. Amylase and lipase normal. ASSESSMENT: 1. Chest pain and back pain for evaluation. Rule out coronary disease. Acute MS infarction ruled out. 2. Pulmonary embolism ruled out. 3. Elevated D-dimer. 4. Long COVID. 5. Elevated glucose and diabetes type 2. 6. Hypertension. 7. GERD. 8. History of aortic valve regurgitation. 9. History of migraine. 10.History of Helicobacter pylori. 11.History of hiatal hernia. 12.History of diverticulosis. 13.History of appendectomy. 14.History of hysterectomy. 15.Hyperlipidemia. RECOMMENDATIONS AND DISCUSSION: Recommend to continue the current management and symptomatic treatment. Otherwise, I would initiate Lipitor and closely follow with Cardiology. Repeat labs and I would also recommend dobutamine stress echo. Guarded prognosis. Further recommendations to follow. MMODL / IJN: [id number] /
[2021-10-20 17:13] LABS: Glucose,Whole Blood 145 mg/dL (75-99)
[2021-10-20] MEDS: IBUPROFEN 400 MG TAB PO PRN (20:21)
[2021-10-20] MEDS ORDERED: MONTELUKAST 10 MG TAB PO SCH (21:00)
[2021-10-20 21:17] LABS: Glucose,Whole Blood 123 mg/dL (75-99)
[2021-10-20] MEDS: SYMBICORT 80-4.5 MCG INHALER INHALATION SCH (21:40)
[2021-10-21] MEDS: MORPHINE SULFATE 4 MG/ML SYRINGE IVP PRN ×2 (03:50→14:55)
[2021-10-21] MEDS: NITROGLYCERIN OINT 1 INCH/GM PACKET TOPICAL SCH ×2 (05:14→12:56)
[2021-10-21] MEDS ORDERED: DOBUTamine DRIP for NUC MED 500 MG in DEXTROSE/WATER 1 250ML.BAG IV PRN (06:00)
[2021-10-21 07:37] LABS: Glucose,Whole Blood 133 mg/dL (75-99)
[2021-10-21 07:50] VITALS: RESP 18; TEMP 98
[2021-10-21] MEDS: INSULIN ASPART (NovoLOG) 100 UNIT/ML VIAL SQ SCH ×2 (08:04→12:56)
[2021-10-21] MEDS: IBUPROFEN 400 MG TAB PO PRN (08:09)
[2021-10-21] MEDS: SYMBICORT 80-4.5 MCG INHALER INHALATION SCH (08:15)
[2021-10-21] MEDS ORDERED: PANTOPRAZOLE 40 MG TABLET PO SCH (09:00)
[2021-10-21] MEDS ORDERED: DOBUTamine DRIP for NUC MED 500 MG/250 ML BAG IV ONE (10:40)
[2021-10-21] MEDS: atenoloL 25 MG TAB PO SCH (12:02)
[2021-10-21] MEDS: ATORVASTATIN 10 MG TAB PO SCH (12:02)
[2021-10-21] MEDS: amLODIPine 10 MG TAB PO SCH (12:02)
[2021-10-21 12:05] LABS: Glucose,Whole Blood 140 mg/dL (75-99)
[2021-10-21] MEDS: HYDROcodone/APAP 5-325MG 1 EACH TAB PO PRN (12:05)
--- NOTE | 2021-10-21 12:15 | ECHOF ---
Referral Reason:chest pain MEASUREMENTS -------- HEIGHT: 162.6 cm WEIGHT: 98.4 kg BP: RVIDd: 2.3 cm (< 3.3) IVSd: 1.3 cm (0.6 - 1.1) LVIDd: 4.6 cm (3.9 - 5.3) LVPWd: 1.3 cm (0.6 - 1.1) IVSs: 1.7 cm LVIDs: 2.2 cm LVPWs: 1.5 cm Ao Diam: 3.2 cm (2.0 - 3.7) AV Cusp: 1.9 cm (1.5 - 2.6) LA Diam: 3.3 cm (2.7 - 3.8) MV EXCURSION: 15.618 mm (> 18.000) MV EF SLOPE: 97 mm/s (70 - 150) EPSS: 0.9 cm MV E Heron: 0.57 m/s MV DecT: 162 ms MV A Heron: 0.66 m/s MV E/A Ratio: 0.88 AR PHT: 568 ms RAP: 5.00 mmHg RVSP: 10.65 mmHg FINDINGS -------- This was a technically difficult study with suboptimal views. The left ventricular size is normal. There is mild concentric left ventricular hypertrophy. Overa ll left ventricular systolic function is normal with, an EF between 55 - 60 %. The right ventricle is normal in size. The left atrial size is normal. The right atrial size is normal. The aortic valve is trileaflet and appears structurally normal. Trace amount of aortic regurgitatio n. The mitral valve is normal. There is trace mitral regurgitation. The tricuspid valve appears structurally normal. Trace tricuspid regurgitation present. Right adam tricular systolic pressure is normal at < 35 mmHg. There is no pulmonic regurgitation present. The aortic root size is normal. IVC Not well visulized. There is no pericardial effusion. CONCLUSIONS -------- 1. The left ventricular size is normal. 2. There is mild concentric left ventricular hypertrophy. 3. Overall left ventricular systolic function is normal with, an EF between 55 - 60 %. 4. Trace amount of aortic regurgitation. 5. There is trace mitral regurgitation. 6. Trace tricuspid regurgitation present. 7. There is no pericardial effusion. DIESEL PILE HAMMER OPERATOR: Salome Alarcon [facility]
--- NOTE | 2021-10-21 13:50 | P.PN ---
Subjective This is a 66-year-old female past medical history of hypertension, GERD. 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 We're consulted for chest pain. Patient presents to the emergency department with complaints of shortness of breath and shoulder pain that radiated down to the front of her neck and to her back. Her d-dimer was elevated, computed tomography scan of the chest was negative for pulmonary embolism. EKG did not reveal any acute ischemic changes. Troponin was negative 3. Patient seen and examined at bedside, distress. Denies any further chest pain or shortness of breath. She does have some back pain with reaching her arms in the air. She is currently maintained on aspirin 81 mg daily, amlodipine 10 mg daily, atorvastatin 10 mg daily, atenolol 25 mg daily Echocardiogram revealed EF 5560 percent, no significant wall motion abnormalities. Blood pressure 143/70, heart rate 78, afebrile, saturations greater than 92% on room air GENERAL: Well-appearing, well-nourished and in no acute distress. NECK: Supple without JVD or thyromegaly. LUNGS: Breath sounds clear to auscultation bilaterally. Respiration equal and unlabored. No wheezes, rales or rhonchi. HEART: Regular rate and rhythm without murmurs, rubs or gallops. S1 and S2 heard. EXTREMITIES: Normal range of motion, no edema. No clubbing or cyanosis. Peripheral pulses intact. ASSESSMENT Chest pain, atypical, acute coronary syndrome has been ruled out Upper Back pain, appears muscular in nature Hypertension PLAN Dobutamine stress Echo test reviewed by Dr. Jeff, no evidence of stress induced ischemia. Continue amlodipine and atenolol. Patient is stable to be discharged from a cardiology perspective. We will follow the patient as needed. Please reach out with any further questions or concerns. Nurse Practitioner note has been reviewed, I agree with a documented findings and plan of care. Patient was seen and examined. Objective - Vital Signs Vital signs: Vital Signs Temp 98 F 10/21/21 07:00 Pulse 78 10/21/21 07:00 Resp 18 10/21/21 08:00 BP 143/70 10/21/21 07:00 Pulse Ox 97 10/21/21 07:00 Intake & Output 10/20/21 10/21/21 10/21/21 18:59 06:59 18:59 Intake Total 1180 Balance 1180 Intake: Oral 1180 Other: # Voids 3 2 - Labs CBC & Chem 7: 10/19/21 17:47 10/19/21 17:47 Labs: Abnormal Lab Results - Last 24 Hours (Table) 10/19/21 10/19/21 10/20/21 Range/Units 17:47 17:47 12:18 POC Glucose (mg/dL) 151 H (75-99) mg/dL Hemoglobin A1c 6.6 H (4.0-6.0) % Triglycerides 203.00 H (0.00-149.00) mg/dL Cholesterol 222.00 H (0.00-200.00) mg/dL VLDL Cholesterol, Calc 40.60 H (5.00-40.00) mg/dL 10/20/21 10/20/21 10/21/21 Range/Units 17:12 21:15 07:21 POC Glucose (mg/dL) 145 H 123 H 133 H (75-99) mg/dL Hemoglobin A1c (4.0-6.0) % Triglycerides (0.00-149.00) mg/dL Cholesterol (0.00-200.00) mg/dL VLDL Cholesterol, Calc (5.00-40.00) mg/dL
--- NOTE | 2021-10-21 13:57 | P.STRESS ---
- Stress Test Note Stress Test Results/Findings: Exam Performed: dobutamine stress echo with con Exam Date: 10/21/21 Reason for Exam: CP Height: 5 ft 4 in Weight: 98.43 kg Protocol: DOBUTAMINE STRESS ECHO WITH LUMASON Stage: 30 mcg Duration of Exercise: 8:48 Resting Heart Rate: 77 Resting Blood Pressure: 143/62 Maximum Achieved Heart Rate: 138 Maximum Achieved Blood Pressure: 157/54 85% PMHR: 130 100% PMHR: 153 METS: NA Technologist Comment: Stress Test Results/Findings: Patient underwent dobutamine stress echo with infusion of dobutamine into Stage 3 for a total of 8 minutes and 48 seconds. Patient's maximum heart rate was 138 which represented 90% age-predicted maximum heart rate. Stress EKG portion: At baseline patient's EKG showed normal sinus rhythm, normal axis, minimal 0.[address] depressions in the inferior leads. At peak dobutamine infusion, EKG showed there was accentuation of baseline EKG abnormalities in the inferior leads. Stress echo portion: 2-D echocardiogram was performed in the parasternal long, personal short, apical 2 and apical four-chamber views at rest, low-dose, peak infusion and in recovery. At baseline, echocardiogram showed left ventricular ejection fraction 55-60% without wall motion abnormalities. With peak infusion, echocardiogram shows improvement in left ventricular ejection fraction, increase contractility, decrease in left ventricular end systolic dimension without wall motion abnormalities consistent with a normal response to dobutamine. Conclusions: 1. Nonspecific stress EKG portion secondary to baseline abnormalities. 2. Normal stress echo response to dobutamine infusion without any evidence of inducible ischemia. 3. Normal EF 55-60%.
[2021-10-21 14:14] VITALS: BP 123/57; PULSE 55
--- NOTE | 2021-10-21 15:06 | CT ---
EXAMINATION TYPE: CT CervThoracic spine wo con DATE OF EXAM: 10/21/2021 COMPARISON: None HISTORY: 66-year-old female Mid Thoracic back pain TECHNIQUE: Contiguous axial scanning of the cervical and thoracic spine without IV contrast. Coronal and sagittal reconstructions performed. CT DLP: 2010 mGycm Automated exposure control for dose reduction was used. FINDINGS: CERVICAL SPINE: No previous cervical junction abnormality, predental space widening, or prevertebral soft tissue swel ling. Preserved alignment of the cervical spine. No acute fracture identified. Degenerative changes of the C1 dens articulation. Moderate disc/endplate degenerative change C5-C7 levels. Slight complexes and disc space narrowing. T his results in mild narrowing of the spinal canal at both of these levels. Assessment of the spinal canal from C6 and below is limited due to artifact from the patient's should ers. Scattered facet and uncovertebral joint arthropathy. There is mild right neuroforaminal stenosis and C5-C6 and mild on the left at C6-C7. THORACIC SPINE: Prominent streaky areas of atelectasis in the lungs. Breathing motion artifact. Hepatic steatosis. Ch olecystectomy clips. Tiny hiatal hernia. Accentuated mid thoracic kyphosis. Mild degenerative disc disease. [facility] within the mid to lower thora cic spine. Vertebral body heights are preserved and alignment is maintained. Degenerative changes of the sternoclavicular joints. No bony spinal canal compromise identified. Scattered facet arthropathy throughout. IMPRESSION: 1. CERVICAL SPINE: NO ACUTE FRACTURE OR MALALIGNMENT. Moderate spondylotic changes especially from C5 through C7 levels. 2. 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 SCATTERED FACET ARTHROPATHY. SLIGHT ACCE NTUATED MID THORACIC KYPHOSIS. NO VERTEBRAL COMPRESSION COLLAPSE OR MALALIGNMENT. 3. INCIDENTAL: MARKED HEPATIC STEATOSIS.
--- NOTE | 2021-10-21 15:12 | P.CNOR ---
History of Present Illness - [facility] Consult date: 10/21/21 Requesting physician: Guille Marina Consult reason: back pain, neck pain History of present illness: Patient is a 66 y/ol female who presented to the emergency department 10/19/2021 due to onset of chest tightness. We are consuled for neck pain/back pain. Patient says around [place] she began feeling upper back pain along the midline and left shoulder blade. Patient describes this pain is constant in nature and sharp. Patient says she had cholecystectomy a few years ago. Patient says sometimes the pain does radiate around to the front. Patient denies any previous orthopedic surgical history. Patient says she has had long-term residual symptoms from COVID-19 infection that occurred in October 2020. Patient also says she gets short of breath very easily since then. Patient describes that nothing really relieves her pain in her back. She says morphine here in the hospital works and [place] works well for a few hours. Patient denies chest pain, fever, nausea, vomiting 20 vision, loss of bowel/bladder control. Patient denies increasing SOB. Past Medical History Past Medical History: GERD/Reflux, Hypertension Additional Past Medical History / Comment(s): Aortic valve regurg, H pylori more than once, migraines, kidney stones surgically removed, hiatal henia, diverticulosis. History of Any Multi-Drug Resistant Organisms: None Reported Past Surgical History: Appendectomy, Cholecystectomy, Hysterectomy Additional Past Surgical History / Comment(s): KIDNEY STONES REMOVED, 2013 EGD/COLONOSCOPY Past Anesthesia/Blood Transfusion Reactions: No Reported Reaction Past Psychological History: No Psychological Hx Reported Additional Psychological History / Comment(s): Pt resides with her spouse. She is independent. Smoking Status: Never smoker Past Alcohol Use History: None Reported Past Drug Use History: None Reported - Past Family History Father Family Medical History: CVA/TIA Additional Family Medical History / Comment(s): Father of a CVA at the age of 70yrs. Mother Family Medical History: Coronary Artery Disease (CAD), Renal Disease Additional Family Medical History / Comment(s): Mother of complications after CABG. Medications and Allergies Home Medications Medication Instructions Recorded Confirmed Type Omeprazole [PriLOSEC] 20 mg PO BID 04/13/14 10/19/21 History Atenolol [Tenormin] 25 mg PO DAILY 08/14/14 10/19/21 History Albuterol Sulfate [Proair Hfa] 2 puff INHALATION RT-QID PRN 10/19/21 10/19/21 History Diclofenac Sodium [Voltaren] 75 mg PO BID PRN 10/19/21 10/19/21 History Fluticasone/Vilanterol [Breo 1 puff INHALATION RT-DAILY 10/19/21 10/19/21 History Ellipta 100-25 Mcg Inhaler] Ibuprofen [Motrin Ib] 400 mg PO Q8H PRN 10/19/21 10/19/21 History Meclizine [Antivert] 25 mg PO BID PRN 10/19/21 10/19/21 History Methocarbamol [Robaxin-750] 750 mg PO BID PRN 10/19/21 10/19/21 History Montelukast [Singulair] 10 mg PO HS 10/19/21 10/19/21 History Allergies Allergy/AdvReac Type Severity Reaction Status Date / Time No Known Allergies Allergy Verified 10/19/21 18:29 Physical Examination Inspection: Negative for any open fractures, ecchymosis, erythema, nodules Sensation: Sensation is equal, symmetric, bilaterally intact throughout upper and lower extremities Palpation: Nontender to palpation throughout the exam Range of motion: Patient has good range of motion in bilateral upper and lower extremities. Motor: 4+/5 in all major motor groups in upper and lower extremities Neurovascular: Cap refill < 3 seconds bilateral digits of the upper extremity. Radial pulses intact, 2+ bilaterally Special tests: Negative Sage's bilaterally; negative Homans bilaterally Results - Labs Labs: Abnormal Lab Results - Last 24 Hours (Table) 10/19/21 10/20/21 10/20/21 Range/Units 17:47 17:12 21:15 POC Glucose (mg/dL) 145 H 123 H (75-99) mg/dL Hemoglobin A1c 6.6 H (4.0-6.0) % 10/21/21 10/21/21 Range/Units 07:21 11:53 POC Glucose (mg/dL) 133 H 140 H (75-99) mg/dL Hemoglobin A1c (4.0-6.0) % H & H 10/19/21 Range/Units 17:47 Hgb 14.7 (11.4-16.0) gm/dL Hct 43.3 (34.0-46.0) % Coagulation 10/19/21 Range/Units 17:47 INR 0.9 (<1.2) Result Diagrams: 10/19/21 17:47 10/19/21 17:47 Assessment and Plan Assessment: 1. Back pain 2. Multiple medical comorbidities Plan: 1. Back pain - CT scan cervical spine ordered for evaluation by medicine. At this time we will await results of CT scan of cervical spine before proceeding with any potential intervention. At this time we do not recommend any emergent/urgent orthopedic surgical intervention. At this time we will continue to follow patient while in hospital 2. Appreciate medical management 3. Pain management - [place] 5 mg/325 mg; IV meds only when necessary 4. DVT prophylaxis - aspirin 5. GI prophylaxis - Protonix 6. PT/OT - weightbearing as tolerated with walker if needed Time with Patient: Greater than 30
--- NOTE | 2021-10-22 06:40 | DS ---
DISCHARGE SUMMARY DATE OF SERVICE: 10/21/2021. FINAL DIAGNOSES: 1. Chest pain, back pain, possibly musculoskeletal, negative stress test. 2. 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 3. Pulmonary embolism ruled out. 4. Elevated D-dimer. 5. Long Covid history. 6. Elevated glucose, diabetes type 2. 7. Hypertension. 8. Gastroesophageal reflux disease. 9. History of aortic valve regurgitation. 10.History of migraines. 11.History of Helicobacter pylori. 12.History of hiatal hernia. 13.History of diverticulosis. 14.History of appendectomy. 15.History of hysterectomy. 16.Hyperlipidemia. The patient will be discharged in stable condition with guarded prognosis after cleared by Cardiology and multiple consultants. HISTORY OF PRESENT ILLNESS: This 66-year-old woman with a past medical history of multiple medical problems was admitted with back pain and chest pain. Myocardial infarction ruled out. Cardiology saw the patient. A stress test was done which was negative and the patient was also seen by Orthopedic surgery. A CT scan of the back and neck was also done. No evidence of reversible ischemia was noted. The patient will be discharged in stable condition with guarded prognosis. Further plans to attend Cardiology, primary physician, orthopedic surgery and Pain Management and Neurology. EXAM: Vitals stable. Cardiovascular S1, S2. Abdomen soft. Nervous system: No focal deficits. DISCHARGE ADVICE AND MEDICATIONS: 1. Diet is cardiac diet. 2. Activity limited until followup. 3. Follow up with Dr. Mcduffie in 2 - 3 days. 4. Follow with Dr. Pelayo in 1 week. 5. Follow up with Dr. Wells as recommended. 6. Follow up with soda fountain operator as recommended. MEDICATIONS: 1. Meclizine as before. 2. Fluticasone as before. 3. Ibuprofen p.r.n. 4. Prilosec 20 mg b.i.d. 5. ProAir p.r.n. 6. Robaxin 750 mg b.i.d. 7. Singulair 10 mg q.h.s. 8. Tenormin 25 mg daily. 9. Voltaren 75 mg p.o. b.i.d. 10.Aspirin 81 mg p.o. daily. 11.Lipitor 10 mg p.o. daily. 12.Hydrocodone 1 p.o. q.6h p.r.n. 13.Norvasc 10 mg p.o. daily p.r.n. BERKLEY / BENITAN: [id number] / MTDD
[2021-10-22] MEDS ORDERED: ASPIRIN 81 MG PO SCH (09:00)
== END 2021-10-21 16:57 | disposition home or self-care (01) ==
LOC: EC 16:53 → 6NMEDSUR 19:40
PROVIDERS: ADMIT Hospitalist; ATTEND Hospitalist
DX: R07.2 Precordial pain (principal); U09.9 Post COVID-19 condition, unspecified; R06.02 Shortness of breath; E11.65 Type 2 diabetes mellitus with hyperglycemia; I10 Essential (primary) hypertension; M54.6 Pain in thoracic spine; M25.519 Pain in unspecified shoulder; M50.322 Other cervical disc degeneration at C5-C6 level; M48.02 Spinal stenosis, cervical region; Z20.822 Contact with and (suspected) exposure to COVID-19; K21.9 Gastro-esophageal reflux disease without esophagitis; E78.5 Hyperlipidemia, unspecified; K57.90 Diverticulosis of intestine, part unspecified, without perforation or abscess without bleeding; K44.9 Diaphragmatic hernia without obstruction or gangrene; I35.1 Nonrheumatic aortic (valve) insufficiency; R79.89 Other specified abnormal findings of blood chemistry; Z79.899 Other long term (current) drug therapy; Z79.82 Long term (current) use of aspirin; Z86.19 Personal history of other infectious and parasitic diseases; Z87.442 Personal history of urinary calculi; Z90.49 Acquired absence of other specified parts of digestive tract; Z90.710 Acquired absence of both cervix and uterus; Z86.69 Personal history of other diseases of the nervous system and sense organs; Z82.3 Family history of stroke; Z82.49 Family history of ischemic heart disease and other diseases of the circulatory system
CPT/HCPCS: 99285; 96376 ×2; 96374; 36415; 94640; 93005 ×2; 85379; 83880; 80061; 80053; 82150; 83690; 83735; 84484 ×2; 85025; 85610; 85730; 83036; 87635; 71046; 72128; 72125; 71275; G0378 ×3; C8929; C8930; J1250; J2270 ×3; Q9950; Q9967; 93306; 93351

== ENCOUNTER → 2023-10-05 | Outpatient (CLI) | payer MEDICARE ==
[2023-10-05 22:00] LABS: ALT 13 U/L (8-44); AST 19 U/L (13-35); Albumin 3.9 g/dL (3.8-4.9); Alkaline Phosphatase 135 U/L (41-126); Blood Urea Nitrogen 11.7 mg/dL (9.0-27.0); Calcium 9.7 mg/dL (8.7-10.3); Carbon Dioxide 26.1 mmol/L (21.6-31.8); Chloride 104 mmol/L (96-109); Chol/HDL Ratio 3.14 Ratio; Glucose 204 mg/dL (70-110); LDL Cholesterol,Calculated 76.3 mg/dL (0.0-131.0); Potassium 4.8 mmol/L (3.5-5.5); Sodium 142 mmol/L (135-145); Total Protein 6.9 g/dL (6.2-8.2)
== END | disposition home or self-care (01) ==
LOC: LABWHC1 12:18
PROVIDERS: ATTEND Internal Medicine
DX: I10 Essential (primary) hypertension (principal); E11.9 Type 2 diabetes mellitus without complications; E78.5 Hyperlipidemia, unspecified
CPT/HCPCS: 36415; 80053; 80061; 83036

== ENCOUNTER → 2024-07-08 | Outpatient (CLI) | payer MEDICARE ==
--- NOTE | 2024-07-18 13:15 | MM ---
Reason for Exam: Screening (asymptomatic). Last mammogram was performed 13 year(s) and 10 month(s) ago. Patient History: Menarche at age 12. First Full-Term at age 19. Left ovary removed at age 42. Right ovary removed at age 42. Hysterectomy at age 42. Postmenopausal. Hormonal Contraceptives, from age 25 until age 26. Risk Values: [place] 5 year model risk: 1.5%. NCI Lifetime model risk: 4.5%. Prior Study Comparison: 09/17/2005 Right Diagnostic Mammogram, [facility]. 07/08/2007 Bilateral Diagnostic Mammogram, [facility]. 08/30/2010 Bilateral Screening Mammogram, [facility]. Tissue Density: There are scattered areas of fibroglandular density. Findings: Analyzed By CAD. Right breast: There is no suspicious group of microcalcifications or new suspicious mass. Left breast: There is no suspicious group of microcalcifications or new suspicious mass. Benign-appearing calcifications left breast. Overall Assessment: Benign, BI-RAD 2 Management: Screening Mammogram of both breasts in [address] [facility] will attempt to contact patient to return for supplemental views and ultrasound if indicated. Patient should continue monthly self-breast exams. A clinical breast exam by your physician is recommended on an annual basis. This exam should not preclude additional follow-up of suspicious palpable abnormalities. Note on [place] scores and lifetime risk: 1. A [place] score greater than 3% is considered moderate risk. If this is the case, consider specialist referral to assess eligibility for a risk reducing agent. 2. If overall lifetime risk for the development of breast cancer is 20% or higher, the patient may qualify for future screening with alternating mammogram and breast MRI. [facility], , 07/18/2024 1:07 PM. Electronically signed and approved by: Og Keller DO
== END | disposition home or self-care (01) ==
LOC: RADMAMWWP 14:14
PROVIDERS: ATTEND Family Medicine
DX: Z12.31 Encounter for screening mammogram for malignant neoplasm of breast
CPT/HCPCS: 77063; 77067